=== PATIENT | male | born 1960 | race Caucasian/White ===

== ENCOUNTER 2020-06-17 22:00 | Inpatient (IN) ==
[~2020-06-17 22:00] MED LIST: HEPARIN/NACL 0.9% 2 UNITS/ML 1,000 ML IV ONE; LIDOCAINE 1% 20 ML VIAL ONE
[2020-06-17] MEDS ORDERED: MIDAZOLAM 2 MG/2 ML VIAL ONE (22:15)
[2020-06-17] MEDS ORDERED: fentaNYL 100 MCG/2 ML VIAL ONE (22:16)
[2020-06-17] MEDS ORDERED: ENOXAPARIN 60 MG/0.6 ML SYRINGE ONE (22:17)
[2020-06-17] MEDS ORDERED: HEPARIN/NACL 0.9% 2 UNITS/ML 500 ML IV ONE (22:25)
[2020-06-17] MEDS ORDERED: NITROPRUSSIDE 50 MG/2 ML VIAL ONE (22:38)
[2020-06-17] MEDS ORDERED: HEPARIN 5,000 UNIT/1 ML VIAL ONE (22:49)
[2020-06-17] MEDS ORDERED: TICAGRELOR 90 MG TABLET ONE (22:50)
[2020-06-17 23:00] LABS: ABG Base Excess -9.6 MMOL/L (-2.5-2.5); ABG HCO3 16.8 MMOL/L (20-26); ABG Oxygen Saturation 89.6 % (95-100); ABG PCO2 54.8 MM HG (35-48); ABG PO2 72.8 MM HG (80-95); ABG TCO2 17.8 MMOL/L (23-27); Glucose Heart Surgery 375 MG/DL (74-106); Hematocrit Heart Surgery 50.4 PERCENT (42-52); Hemoglobin Heart Surgery 16.5 G/DL (14.0-18.0); Ionized Calcium Arterial 1.02 MMOL/L (1.21-1.46); PCO2 Patient Temp Arterial 54.8 MMHG; PH Patient Temp Arterial 7.177; PO2 Patient Temp Arterial 72.8 MM HG; Patient Temperature 37 CELCIUS; Potassium Heart/CVR 3.5 MMOL/L (3.5-5.1); Sodium Heart/CVR 141 MMOL/L (135-145)
[2020-06-17 23:01] LABS: ABG PH 7.177 (7.35-7.45)
[2020-06-17 23:02] LABS: ABG Base Excess -8.2 MMOL/L (-2.5-2.5); ABG HCO3 17.9 MMOL/L (20-26); ABG Oxygen Saturation 96.2 % (95-100); ABG PCO2 45.8 MM HG (35-48); ABG PH 7.239 (7.35-7.45); ABG PO2 96.9 MM HG (80-95); Glucose Heart Surgery 351 MG/DL (74-106); Hematocrit Heart Surgery 47.5 PERCENT (42-52); Hemoglobin Heart Surgery 15.5 G/DL (14.0-18.0); Ionized Calcium Arterial 1.02 MMOL/L (1.21-1.46); PCO2 Patient Temp Arterial 45.8 MMHG; PH Patient Temp Arterial 7.239; PO2 Patient Temp Arterial 96.9 MM HG; Patient Temperature 37 CELCIUS; Potassium Heart/CVR 3.7 MMOL/L (3.5-5.1); Sodium Heart/CVR 141 MMOL/L (135-145)
[2020-06-17] MEDS ORDERED: ALBUTEROL 2.5 MG/3 ML NEB RESP TX PRN (23:20)
[2020-06-17] MEDS ORDERED: DEXTROSE 50% 25 GM/50 ML VIAL IV PRN (23:25)
[2020-06-17] MEDS ORDERED: GLUCAGON 1 MG VIAL IM PRN (23:25)
[2020-06-17] MEDS ORDERED: NOREPINEPHRINE 8 MG in SODIUM CHLORIDE 0.9% 242 ML IV SCH (23:30)
[2020-06-17] MEDS ORDERED: HEPARIN DRIP 25,000 UNITS/500 ML PREMIX IV SCH (23:30)
[2020-06-17] MEDS ORDERED: HEPARIN DRIP 25,000 UNITS/500 ML PREMIX IV ONE (23:32)
[2020-06-18] MEDS ORDERED: LIDOCAINE 2%/EPI 20 ML VIAL ONE (00:09)
[2020-06-18] MEDS: MIDAZOLAM 100 MG in SODIUM CHLORIDE 0.9% 80 ML IV PRN ×3 (00:43→22:28)
[2020-06-18] MEDS: MORPHINE 4 MG/1 ML VIAL IV PRN ×2 (01:08→05:49)
[2020-06-18] MEDS ORDERED: SODIUM BICARB INJ 50 MEQ in SODIUM CHLORIDE 0.45% 1,000 ML IV SCH (01:30)
[2020-06-18] MEDS: ATORVASTATIN 80 MG TABLET PO SCH ×2 (03:23→22:04)
[2020-06-18] MEDS: HEPARIN DRIP 25,000 UNITS/500 ML PREMIX IV SCH ×2 (03:24→22:17)
[2020-06-18] MEDS: ALBUTEROL 2.5 MG/3 ML NEB RESP TX SCH ×4 (03:24→19:54)
[2020-06-18] MEDS: INSULIN REGULAR 100 UNIT/ML SUBCUT SCH ×5 (03:26→21:16)
[2020-06-18 03:58] LABS: ABG Oxygen Saturation 97.7 % (95-100); ABG PCO2 33.5 MM HG (35-48); ABG PH 7.266 (7.35-7.45); ABG TCO2 13.2 MMOL/L (23-27)
[2020-06-18 03:59] LABS: Basophils # 0.1 10*3/uL (0.0-0.2); Basophils % 0.2 % (0.0-0.8); Hematocrit 47.6 VOL% (42.0-52.0); Hemoglobin 15.5 GM/DL (14.0-18.0); Immature Granulocytes Absolute 0.29 #; Lymphocytes # 2.2 10*3/uL (1.4-4.0); Lymphocytes % 7.5 % (21.2-54.2); Mean Corpuscular HGB Conc 32.6 GM/DL (32-36); Mean Corpuscular Volume 93.5 FL (87-102); Mean Platelet Volume 10.1 FL (9.6-12.0); Monocytes % 9.5 % (1.7-12.7); Neutrophils % 81.8 % (38.7-73.9); Platelet Count 317 T/CUMM (130-400); Red Blood Count 5.09 MC/CUMM (3.8-5.5); Red Cell Distribution Width 13.6 % (9.3-17.3); White Blood Count 29.7 T/CUMM (4-12)
[2020-06-18] MEDS: FAMOTIDINE 20 MG/2 ML VIAL IV SCH ×2 (04:29→13:20)
[2020-06-18] MEDS ORDERED: SODIUM CHLORIDE 0.9% 250 ML IV ONE (05:03)
[2020-06-18] MEDS ORDERED: cefTRIAXone 1,000 MG in SYRINGE 1 EACH IV ONE (05:24)
[2020-06-18] MEDS: ACETAMINOPHEN 500 MG TABLET PO PRN (05:43)
[2020-06-18] MEDS: NOREPINEPHRINE 16 MG in SODIUM CHLORIDE 0.9% 234 ML IV PRN ×2 (05:45→14:33)
[2020-06-18] MEDS: methylPREDNISolone SOD SUC 125 MG/2 ML VIAL IV SCH ×2 (06:33→18:09)
[2020-06-18] MEDS: CLINDAMYCIN INJ 600 MG in PREMIX 1 EACH IV SCH ×3 (06:33→22:05)
[2020-06-18] MEDS: SODIUM BICARB INJ 150 MEQ in STERILE WATER INJ 850 ML IV SCH ×2 (06:37→17:08)
[2020-06-18] MEDS: FUROSEMIDE INJ 200 MG in SODIUM CHLORIDE 0.9% 80 ML IV SCH (07:22)
[2020-06-18 07:46] LABS: INR 1.3
[2020-06-18 07:48] LABS: Partial Thromboplastin Time 98.2 SECS (23.9-33.8)
[2020-06-18 07:49] LABS: Blood Urea Nitrogen 29 MG/DL (7-18); Calcium 6.7 MG/DL (8.5-10.1); Carbon Dioxide 20 MMOL/L (21-32); Estimated Glom Filtration Rate 31 ML/MIN; Glucose 335 MG/DL (74-106); HDL Cholesterol 28 MG/DL (40-60); Osmolality,Calculated 291.8 MOS/KG (273-304); Potassium 5.1 MMOL/L (3.5-5.1); Risk Ratio 4.29; Sodium 137 MMOL/L (136-145); Triglycerides 159 MG/DL (2-150); VLDL CHOLESTEROL 31.8 MG/DL
[2020-06-18] MEDS: DOBUTamine 500 MG/250 ML PREMIX IV PRN (09:28)
[2020-06-18] MEDS: TICAGRELOR 90 MG TABLET PO SCH ×2 (10:26→22:05)
[2020-06-18] MEDS: ASPIRIN CHEW 81 MG TABLET PO SCH (10:26)
[2020-06-18 14:07] LABS: Calcium 6.3 MG/DL (8.5-10.1); Osmolality,Calculated 297.8 MOS/KG (273-304)
[2020-06-18] MEDS ORDERED: SODIUM CHLORIDE 0.9% 500 ML IV ONE (15:21)
[2020-06-18 16:49] LABS: INR 1.2; PT Patient Result 12.6 SECS (9.8-11.9)
[2020-06-18 16:56] LABS: Partial Thromboplastin Time 100.3 SECS (23.9-33.8)
[2020-06-18] MEDS ORDERED: INSULIN REGULAR 100 UNIT/ML IV ONE (23:51)
[2020-06-19] MEDS: FAMOTIDINE 20 MG/2 ML VIAL IV SCH ×3 (00:11→23:07)
[2020-06-19] MEDS: ALBUTEROL 2.5 MG/3 ML NEB RESP TX SCH ×4 (01:00→22:09)
[2020-06-19] MEDS ORDERED: INSULIN REGULAR 100 UNIT/ML IV ONE (01:48)
[2020-06-19] MEDS: INSULIN REGULAR 100 UNIT/ML SUBCUT SCH ×3 (01:49→10:03)
[2020-06-19 03:19] LABS: Basophils % 0.1 % (0.0-0.8); Hematocrit 35.2 VOL% (42.0-52.0); Hemoglobin 11.6 GM/DL (14.0-18.0); Immature Granulocytes % 0.6 %; Immature Granulocytes Absolute 0.14 #; Lymphocytes % 4.5 % (21.2-54.2); Mean Corpuscular Volume 92.9 FL (87-102); Mean Platelet Volume 10.7 FL (9.6-12.0); Monocytes % 4.9 % (1.7-12.7); Neutrophils % 89.9 % (38.7-73.9); Platelet Count 142 T/CUMM (130-400); Red Blood Count 3.79 MC/CUMM (3.8-5.5); Red Cell Distribution Width 13.4 % (9.3-17.3); White Blood Count 22.5 T/CUMM (4-12)
[2020-06-19 03:39] LABS: ABG Base Excess 0.1 MMOL/L (-2.5-2.5); ABG HCO3 23.1 MMOL/L (20-26); ABG Oxygen Saturation 96.4 % (95-100); ABG PCO2 32.3 MM HG (35-48); ABG PH 7.472 (7.35-7.45); ABG PO2 84.7 MM HG (80-95); ABG TCO2 24.1 MMOL/L (23-27)
[2020-06-19 03:59] LABS: Band Neutrophils 1 % (0-10); Hypochromasia 1+; Lymphocytes 5 % (20-55); Microcytosis 1+; Platelet Estimate Adequate; Segmented Neutrophils 89 % (50-85); Total Cells Counted 100
[2020-06-19 04:12] LABS: Calcium 6.6 MG/DL (8.5-10.1); Osmolality,Calculated 302.7 MOS/KG (273-304); Potassium 3.5 MMOL/L (3.5-5.1)
[2020-06-19] MEDS: FUROSEMIDE INJ 200 MG in SODIUM CHLORIDE 0.9% 80 ML IV SCH ×2 (04:32→22:06)
[2020-06-19] MEDS: HEPARIN DRIP 25,000 UNITS/500 ML PREMIX IV SCH ×2 (04:41→15:58)
[2020-06-19] MEDS: CLINDAMYCIN INJ 600 MG in PREMIX 1 EACH IV SCH ×3 (05:53→21:54)
[2020-06-19] MEDS: methylPREDNISolone SOD SUC 125 MG/2 ML VIAL IV SCH ×2 (06:01→19:04)
[2020-06-19] MEDS: cefTRIAXone 1,000 MG in SYRINGE 1 EACH IV SCH (06:34)
[2020-06-19] MEDS ORDERED: SODIUM CHLORIDE 0.9% 500 ML IV ONE ×2 (08:48→16:20)
[2020-06-19] MEDS: SODIUM BICARB INJ 150 MEQ in STERILE WATER INJ 850 ML IV SCH ×2 (09:07→15:05)
[2020-06-19] MEDS: TICAGRELOR 90 MG TABLET PO SCH ×2 (09:34→20:00)
[2020-06-19] MEDS: ASPIRIN CHEW 81 MG TABLET PO SCH (09:34)
[2020-06-19] MEDS: NOREPINEPHRINE 16 MG in SODIUM CHLORIDE 0.9% 234 ML IV PRN ×2 (09:35→22:31)
[2020-06-19] MEDS: INSULIN REGULAR DRIP 100 ML IV PRN ×2 (09:51→23:04)
[2020-06-19] MEDS ORDERED: MIDAZOLAM 2 MG/2 ML VIAL ONE ×2 (11:07→13:16)
[2020-06-19] MEDS: MIDAZOLAM 100 MG in SODIUM CHLORIDE 0.9% 80 ML IV PRN ×2 (11:19→19:06)
[2020-06-19] MEDS: DOBUTamine 500 MG/250 ML PREMIX IV PRN (11:27)
[2020-06-19] MEDS ORDERED: MIDAZOLAM 2 MG/2 ML VIAL IV STA (13:15)
[2020-06-19] MEDS ORDERED: DEXMEDETOMIDINE 200 MCG in SODIUM CHLORIDE 0.9% 48 ML IV PRN (14:19)
[2020-06-19 15:33] LABS: INR 1.1; PT Patient Result 11.8 SECS (9.8-11.9)
[2020-06-19] MEDS: DEXMEDETOMIDINE 400 MCG in SODIUM CHLORIDE 0.9% 96 ML IV PRN (17:22)
[2020-06-19] MEDS: ATORVASTATIN 80 MG TABLET PO SCH (20:00)
[2020-06-20] MEDS: ALBUTEROL 2.5 MG/3 ML NEB RESP TX SCH ×4 (00:05→19:22)
[2020-06-20] MEDS: MORPHINE 4 MG/1 ML VIAL IV PRN ×2 (02:30→21:23)
[2020-06-20] MEDS: ACETAMINOPHEN 500 MG TABLET PO PRN ×2 (03:16→22:55)
[2020-06-20 03:29] LABS: Basophils % 0.1 % (0.0-0.8); Hemoglobin 10.1 GM/DL (14.0-18.0); Immature Granulocytes Absolute 0.24 #; Lymphocytes # 0.6 10*3/uL (1.4-4.0); Lymphocytes % 2.5 % (21.2-54.2); Mean Corpuscular HGB Conc 34.8 GM/DL (32-36); Mean Corpuscular Volume 87.3 FL (87-102); Mean Platelet Volume 11.3 FL (9.6-12.0); Neutrophils % 92.4 % (38.7-73.9); Platelet Count 132 T/CUMM (130-400); Red Blood Count 3.32 MC/CUMM (3.8-5.5); Red Cell Distribution Width 13.7 % (9.3-17.3); White Blood Count 24.4 T/CUMM (4-12)
[2020-06-20 03:40] LABS: ABG Base Excess 1.2 MMOL/L (-2.5-2.5); ABG HCO3 24.1 MMOL/L (20-26); ABG Oxygen Saturation 98.6 % (95-100); ABG PCO2 32.1 MM HG (35-48); ABG PH 7.494 (7.35-7.45); ABG PO2 268.6 MM HG (80-95); ABG TCO2 25.1 MMOL/L (23-27)
[2020-06-20 03:57] LABS: Calcium 6.4 MG/DL (8.5-10.1); Hypochromasia 1+; Lymphocytes 1 % (20-55); Osmolality,Calculated 297.7 MOS/KG (273-304); Platelet Estimate Normal; Potassium 3.1 MMOL/L (3.5-5.1); Segmented Neutrophils 97 % (50-85); Total Cells Counted 100
[2020-06-20 03:58] LABS: Microcytosis 1+
[2020-06-20] MEDS: DEXMEDETOMIDINE 400 MCG in SODIUM CHLORIDE 0.9% 96 ML IV PRN (05:11)
[2020-06-20] MEDS: methylPREDNISolone SOD SUC 125 MG/2 ML VIAL IV SCH ×2 (05:26→18:03)
[2020-06-20] MEDS: cefTRIAXone 1,000 MG in SYRINGE 1 EACH IV SCH (05:26)
[2020-06-20] MEDS: CLINDAMYCIN INJ 600 MG in PREMIX 1 EACH IV SCH ×3 (05:30→21:30)
[2020-06-20] MEDS: NOREPINEPHRINE 16 MG in SODIUM CHLORIDE 0.9% 234 ML IV PRN ×2 (08:30→18:43)
[2020-06-20] MEDS: ASPIRIN CHEW 81 MG TABLET PO SCH (08:50)
[2020-06-20] MEDS: TICAGRELOR 90 MG TABLET PO SCH ×2 (08:51→20:03)
[2020-06-20] MEDS: DOBUTamine 500 MG/250 ML PREMIX IV PRN (08:54)
[2020-06-20] MEDS: MIDAZOLAM 100 MG in SODIUM CHLORIDE 0.9% 80 ML IV PRN ×2 (09:16→20:03)
[2020-06-20] MEDS: HEPARIN DRIP 25,000 UNITS/500 ML PREMIX IV SCH (09:28)
[2020-06-20] MEDS: SODIUM BICARB INJ 150 MEQ in STERILE WATER INJ 850 ML IV SCH ×2 (09:57→12:25)
[2020-06-20 10:09] LABS: Calcium 6.6 MG/DL (8.5-10.1); Osmolality,Calculated 297.8 MOS/KG (273-304); Potassium 3.1 MMOL/L (3.5-5.1)
[2020-06-20] MEDS ORDERED: HEPARIN LOCK FLUSH 500 UNIT/5 ML SYRINGE IV ONE (10:49)
[2020-06-20] MEDS: FAMOTIDINE 20 MG/2 ML VIAL IV SCH ×2 (12:26→22:47)
[2020-06-20] MEDS: INSULIN REGULAR DRIP 100 ML IV PRN (14:23)
[2020-06-20] MEDS: ATORVASTATIN 80 MG TABLET PO SCH (20:03)
[2020-06-20 21:41] LABS: Calcium 6.2 MG/DL (8.5-10.1); Osmolality,Calculated 306.3 MOS/KG (273-304); Potassium 3.1 MMOL/L (3.5-5.1)
[2020-06-21] MEDS: ALBUTEROL 2.5 MG/3 ML NEB RESP TX SCH ×4 (00:05→19:00)
[2020-06-21 00:24] LABS: Basophils % 0.1 % (0.0-0.8); Immature Granulocytes % 1.3 %; Immature Granulocytes Absolute 0.27 #; Lymphocytes # 0.7 10*3/uL (1.4-4.0); Lymphocytes % 3.2 % (21.2-54.2); Mean Corpuscular HGB Conc 34.2 GM/DL (32-36); Mean Corpuscular Volume 88.9 FL (87-102); Mean Platelet Volume 11.8 FL (9.6-12.0); Monocytes % 6.9 % (1.7-12.7); NRBC # 0.03 10*3/uL; Neutrophils % 88.5 % (38.7-73.9); Platelet Count 110 T/CUMM (130-400); Red Blood Count 2.53 MC/CUMM (3.8-5.5); Red Cell Distribution Width 13.9 % (9.3-17.3)
[2020-06-21 00:25] LABS: Hematocrit 22.5 VOL% (42.0-52.0); Hemoglobin 7.7 GM/DL (14.0-18.0)
[2020-06-21 00:40] LABS: ABG HCO3 24.5 MMOL/L (20-26); ABG Oxygen Saturation 98.7 % (95-100); ABG PCO2 25.6 MM HG (35-48); ABG PH 7.598 (7.35-7.45); ABG PO2 225.5 MM HG (80-95); ABG TCO2 25.2 MMOL/L (23-27)
[2020-06-21 00:41] LABS: Calcium 6.1 MG/DL (8.5-10.1); Osmolality,Calculated 300.8 MOS/KG (273-304); Potassium 3.3 MMOL/L (3.5-5.1)
[2020-06-21] MEDS ORDERED: SODIUM CHLORIDE 0.9% 1,000 ML IV ONE (00:52)
[2020-06-21] MEDS ORDERED: HEPARIN IV PRN (01:40)
[2020-06-21] MEDS ORDERED: DEXTROSE 5% IV PRN (01:40)
[2020-06-21] MEDS: INSULIN REGULAR DRIP 100 ML IV PRN ×2 (04:01→23:41)
[2020-06-21 04:49] LABS: Basophils % 0.1 % (0.0-0.8); Hematocrit 27.5 VOL% (42.0-52.0); Immature Granulocytes % 1.2 %; Immature Granulocytes Absolute 0.24 #; Lymphocytes # 0.6 10*3/uL (1.4-4.0); Lymphocytes % 2.7 % (21.2-54.2); Mean Corpuscular HGB Conc 34.9 GM/DL (32-36); Mean Platelet Volume 11.9 FL (9.6-12.0); NRBC # 0.07 10*3/uL; Platelet Count 105 T/CUMM (130-400); Red Blood Count 3.16 MC/CUMM (3.8-5.5); Red Cell Distribution Width 13.6 % (9.3-17.3); White Blood Count 20.1 T/CUMM (4-12)
[2020-06-21 05:07] LABS: Hemoglobin 9.6 GM/DL (14.0-18.0)
[2020-06-21] MEDS: NOREPINEPHRINE 16 MG in SODIUM CHLORIDE 0.9% 234 ML IV PRN ×2 (05:07→15:46)
[2020-06-21 05:20] LABS: Albumin 1.8 G/DL (3.4-5.0); Bilirubin,Direct 0.31 MG/DL (0.0-0.20); Bilirubin,Indirect 0.7 MG/DL (0.0-1.0); Calcium 6.2 MG/DL (8.5-10.1); Osmolality,Calculated 304.7 MOS/KG (273-304); Potassium 3.4 MMOL/L (3.5-5.1); Total Protein 4.4 G/DL (6.4-8.3)
[2020-06-21 05:24] LABS: Band Neutrophils 5 % (0-10); Lymphocytes 4 % (20-55); Platelet Estimate Decreased; Segmented Neutrophils 87 % (50-85); Total Cells Counted 100
[2020-06-21 05:24] LABS: ABG Base Excess 0.4 MMOL/L (-2.5-2.5); ABG HCO3 24.8 MMOL/L (20-26); ABG Oxygen Saturation 96.8 % (95-100); ABG PCO2 35.7 MM HG (35-48); ABG PO2 83.1 MM HG (80-95)
[2020-06-21] MEDS: DEXMEDETOMIDINE 400 MCG in SODIUM CHLORIDE 0.9% 96 ML IV PRN (05:31)
[2020-06-21 05:41] LABS: PT Patient Result 11.1 SECS (9.8-11.9)
[2020-06-21 05:53] LABS: Hepatitis B Core IgM Quant 0.31 Index; Hepatitis B Surface Ag Quant < 0.10 Index; Hepatitis B Surface Ag Result Non-Reactive (NonReactive); Hepatitis C Virus Ab Quant 0.04 Index; Hepatitis C Virus Ab Result Non-Reactive (NonReactive)
[2020-06-21] MEDS: cefTRIAXone 1,000 MG in SYRINGE 1 EACH IV SCH (06:06)
[2020-06-21] MEDS: methylPREDNISolone SOD SUC 125 MG/2 ML VIAL IV SCH (06:06)
[2020-06-21] MEDS: CLINDAMYCIN INJ 600 MG in PREMIX 1 EACH IV SCH ×3 (06:07→21:32)
[2020-06-21 06:13] LABS: Bacteria,Urine Few /HPF (Few); Bilirubin,Urine Negative (Negative); Blood, Urine Large mg/dL (Negative); Glucose,Urine (UA) Negative (Negative); Ketones,Urine Negative (Negative); Nitrite,Urine Negative (Negative); Protein,Urine 30 MG/DL; RBC,Urine 16 /HPF (0-4); Urine Appearance CLOUDY (Clear); Urine Color Yellow (Yellow); Urine Specific Gravity 1.016 (1.001-1.035); Urine Urobilinogen < 2.0 EU/DL (0.2-1.0); WBC,Urine 20 /HPF (0-6)
[2020-06-21] MEDS: SODIUM BICARB INJ 150 MEQ in STERILE WATER INJ 850 ML IV SCH (06:18)
[2020-06-21] MEDS: MIDAZOLAM 100 MG in SODIUM CHLORIDE 0.9% 80 ML IV PRN ×2 (06:19→17:54)
[2020-06-21 08:51] LABS: Lymphocytes 3 % (20-55); Metamyelocytes 1 %; Platelet Estimate Decreased; Segmented Neutrophils 89 % (50-85); Total Cells Counted 100
[2020-06-21 09:27] LABS: Hematocrit 29.9 VOL% (42.0-52.0)
[2020-06-21 09:34] LABS: Calcium 6.1 MG/DL (8.5-10.1); Osmolality,Calculated 303.7 MOS/KG (273-304); Potassium 3.4 MMOL/L (3.5-5.1)
[2020-06-21] MEDS ORDERED: HEPARIN 5,000 UNIT/1 ML VIAL IV ONE (09:57)
[2020-06-21] MEDS ORDERED: HEPARIN 5,000 UNIT/1 ML VIAL SUBCUT SCH (10:00)
[2020-06-21] MEDS: DOBUTamine 500 MG/250 ML PREMIX IV PRN (10:06)
[2020-06-21] MEDS: HEPARIN DRIP 25,000 UNITS/500 ML PREMIX IV SCH ×2 (10:07→10:25)
[2020-06-21] MEDS: ASPIRIN CHEW 81 MG TABLET PO SCH (10:25)
[2020-06-21] MEDS: TICAGRELOR 90 MG TABLET PO SCH ×2 (10:25→21:27)
[2020-06-21] MEDS: INSULIN GLARGINE 100 UNIT/ML SUBCUT SCH ×2 (12:40→23:49)
[2020-06-21] MEDS: FAMOTIDINE 20 MG/2 ML VIAL IV SCH ×2 (12:40→22:56)
[2020-06-21] MEDS: methylPREDNISolone SOD SUC 40 MG/1 ML VIAL IV SCH (17:43)
[2020-06-21] MEDS: MORPHINE 4 MG/1 ML VIAL IV PRN ×2 (17:44→22:59)
[2020-06-21] MEDS: ATORVASTATIN 80 MG TABLET PO SCH (21:27)
[2020-06-21 22:19] LABS: Osmolality,Calculated 307.4 MOS/KG (273-304); Potassium 3.3 MMOL/L (3.5-5.1)
[2020-06-22] MEDS: ALBUTEROL 2.5 MG/3 ML NEB RESP TX SCH ×4 (00:23→19:12)
[2020-06-22] MEDS: MIDAZOLAM 100 MG in SODIUM CHLORIDE 0.9% 80 ML IV PRN ×2 (04:52→15:39)
[2020-06-22 04:54] LABS: ABG Base Excess 0.2 MMOL/L (-2.5-2.5); ABG HCO3 24.6 MMOL/L (20-26); ABG Oxygen Saturation 97.9 % (95-100); ABG PH 7.453 (7.35-7.45); ABG PO2 98.6 MM HG (80-95)
[2020-06-22 05:22] LABS: Basophils # 0.1 10*3/uL (0.0-0.2); Basophils % 0.3 % (0.0-0.8); Hematocrit 25.4 VOL% (42.0-52.0); Hemoglobin 8.7 GM/DL (14.0-18.0); Immature Granulocytes % 2.3 %; Immature Granulocytes Absolute 0.47 #; Lymphocytes # 0.7 10*3/uL (1.4-4.0); Lymphocytes % 3.6 % (21.2-54.2); Mean Corpuscular HGB Conc 34.3 GM/DL (32-36); Mean Corpuscular Volume 87.9 FL (87-102); Mean Platelet Volume 12.1 FL (9.6-12.0); NRBC # 0.08 10*3/uL; Neutrophils % 84.8 % (38.7-73.9); Platelet Count 52 T/CUMM (130-400); Red Blood Count 2.89 MC/CUMM (3.8-5.5); White Blood Count 20.8 T/CUMM (4-12)
[2020-06-22 05:27] LABS: Calcium 6.2 MG/DL (8.5-10.1); Osmolality,Calculated 302.8 MOS/KG (273-304); Potassium 3.2 MMOL/L (3.5-5.1)
[2020-06-22] MEDS: methylPREDNISolone SOD SUC 40 MG/1 ML VIAL IV SCH ×2 (05:30→17:40)
[2020-06-22] MEDS: cefTRIAXone 1,000 MG in SYRINGE 1 EACH IV SCH (05:32)
[2020-06-22] MEDS: CLINDAMYCIN INJ 600 MG in PREMIX 1 EACH IV SCH (05:39)
[2020-06-22 08:36] LABS: Hypochromasia 2+; Lymphocytes 2 % (20-55); Platelet Estimate Decreased; Polychromasia Slight; Segmented Neutrophils 89 % (50-85); Total Cells Counted 100
[2020-06-22] MEDS: TICAGRELOR 90 MG TABLET PO SCH ×2 (09:01→21:29)
[2020-06-22] MEDS: ASPIRIN CHEW 81 MG TABLET PO SCH (09:01)
[2020-06-22 09:03] LABS: Calcium 6.1 MG/DL (8.5-10.1); Osmolality,Calculated 306.7 MOS/KG (273-304); Potassium 3.4 MMOL/L (3.5-5.1)
[2020-06-22] MEDS: MORPHINE 4 MG/1 ML VIAL IV PRN ×3 (09:04→21:29)
[2020-06-22 09:48] LABS: Basophils % 0.2 % (0.0-0.8); Hematocrit 24.6 VOL% (42.0-52.0); Hemoglobin 8.3 GM/DL (14.0-18.0); Immature Granulocytes % 2.1 %; Immature Granulocytes Absolute 0.54 #; Lymphocytes # 0.8 10*3/uL (1.4-4.0); Lymphocytes % 3.1 % (21.2-54.2); Mean Corpuscular HGB Conc 33.7 GM/DL (32-36); Mean Corpuscular Volume 90.1 FL (87-102); Mean Platelet Volume 12.5 FL (9.6-12.0); Monocytes % 12.5 % (1.7-12.7); NRBC # 0.17 10*3/uL; Neutrophils % 82.1 % (38.7-73.9); Platelet Count 61 T/CUMM (130-400); Red Blood Count 2.73 MC/CUMM (3.8-5.5); White Blood Count 25.2 T/CUMM (4-12)
[2020-06-22] MEDS ORDERED: GLUCAGON 1 MG VIAL IM PRN (10:07)
[2020-06-22] MEDS ORDERED: DEXTROSE 50% 25 GM/50 ML VIAL IV PRN (10:07)
[2020-06-22] MEDS: DOBUTamine 500 MG/250 ML PREMIX IV PRN (10:43)
[2020-06-22] MEDS: HEPARIN DRIP 25,000 UNITS/500 ML PREMIX IV SCH (10:44)
[2020-06-22] MEDS: NOREPINEPHRINE 16 MG in SODIUM CHLORIDE 0.9% 234 ML IV PRN (12:16)
[2020-06-22] MEDS: FAMOTIDINE 20 MG/2 ML VIAL IV SCH (12:25)
[2020-06-22] MEDS: INSULIN LISPRO 100 UNIT/ML SUBCUT SCH ×2 (12:25→17:39)
[2020-06-22] MEDS: INSULIN GLARGINE 100 UNIT/ML SUBCUT SCH (12:26)
[2020-06-22 12:51] LABS: Band Neutrophils 3 % (0-10); Hypochromasia 1+; Lymphocytes 3 % (20-55); Platelet Estimate Decreased; Polychromasia Slight; Segmented Neutrophils 87 % (50-85); Total Cells Counted 100
[2020-06-22] MEDS ORDERED: MEROPENEM 500 MG in SODIUM CHLORIDE 0.9% 100 ML IV SCH (13:00)
[2020-06-22 13:30] LABS: Hematocrit 29.5 VOL% (42.0-52.0)
[2020-06-22 13:31] LABS: Hemoglobin 9.9 GM/DL (14.0-18.0)
[2020-06-22] MEDS ORDERED: VANCOMYCIN INJ 2,500 MG in SODIUM CHLORIDE 0.9% 500 ML IV ONE (15:00)
[2020-06-22 16:00] LABS: Bilirubin,Total 0.9 MG/DL (0.2-1.0); Osmolality,Calculated 317.7 MOS/KG (273-304); Potassium 3.7 MMOL/L (3.5-5.1); Total Protein 4.6 G/DL (6.4-8.3)
[2020-06-22 16:02] LABS: Calcium 5.8 MG/DL (8.5-10.1)
[2020-06-22] MEDS ORDERED: CALCIUM CHLORIDE 1,000 MG/10 ML SYRINGE IV ONE ×2 (18:16→18:19)
[2020-06-22] MEDS: ATORVASTATIN 80 MG TABLET PO SCH (21:29)
[2020-06-22 23:04] LABS: Calcium 6.1 MG/DL (8.5-10.1); Osmolality,Calculated 318.8 MOS/KG (273-304); Potassium 3.7 MMOL/L (3.5-5.1)
[2020-06-23] MEDS: ALBUTEROL 2.5 MG/3 ML NEB RESP TX SCH ×4 (00:02→19:18)
[2020-06-23] MEDS: FAMOTIDINE 20 MG/2 ML VIAL IV SCH ×3 (00:06→22:58)
[2020-06-23] MEDS: INSULIN LISPRO 100 UNIT/ML SUBCUT SCH ×6 (00:08→22:33)
[2020-06-23] MEDS: INSULIN GLARGINE 100 UNIT/ML SUBCUT SCH (00:09)
[2020-06-23] MEDS: MIDAZOLAM 100 MG in SODIUM CHLORIDE 0.9% 80 ML IV PRN ×3 (01:15→19:45)
[2020-06-23] MEDS: MORPHINE 4 MG/1 ML VIAL IV PRN ×4 (01:40→17:57)
[2020-06-23 05:56] LABS: ABG HCO3 21.9 MMOL/L (20-26); ABG Oxygen Saturation 97.9 % (95-100); ABG PH 7.402 (7.35-7.45); ABG TCO2 19.4 MMOL/L (23-27)
[2020-06-23 05:57] LABS: Basophils # 0.1 10*3/uL (0.0-0.2); Basophils % 0.3 % (0.0-0.8); Hematocrit 25.8 VOL% (42.0-52.0); Hemoglobin 9.1 GM/DL (14.0-18.0); Immature Granulocytes % 4.1 %; Immature Granulocytes Absolute 0.99 #; Lymphocytes # 0.5 10*3/uL (1.4-4.0); Lymphocytes % 2.2 % (21.2-54.2); Mean Corpuscular HGB Conc 35.3 GM/DL (32-36); Mean Corpuscular Volume 86.3 FL (87-102); Mean Platelet Volume 12.4 FL (9.6-12.0); Monocytes % 8.7 % (1.7-12.7); NRBC # 0.12 10*3/uL; Neutrophils % 84.7 % (38.7-73.9); Platelet Count 53 T/CUMM (130-400); Red Blood Count 2.99 MC/CUMM (3.8-5.5); Red Cell Distribution Width 14.2 % (9.3-17.3); White Blood Count 24.3 T/CUMM (4-12)
[2020-06-23 06:05] LABS: Osmolality,Calculated 316.1 MOS/KG (273-304); Potassium 3.8 MMOL/L (3.5-5.1)
[2020-06-23 06:21] LABS: Hypochromasia 1+; Lymphocytes 4 % (20-55); Microcytosis 1+; Platelet Estimate Decreased; Segmented Neutrophils 90 % (50-85); Total Cells Counted 100
[2020-06-23] MEDS: methylPREDNISolone SOD SUC 40 MG/1 ML VIAL IV SCH ×2 (06:22→18:05)
[2020-06-23] MEDS: ASPIRIN CHEW 81 MG TABLET PO SCH (08:25)
[2020-06-23] MEDS: TICAGRELOR 90 MG TABLET PO SCH ×2 (08:25→22:33)
[2020-06-23] MEDS ORDERED: INSULIN GLARGINE 100 UNIT/ML SUBCUT SCH (09:00)
[2020-06-23] MEDS ORDERED: SUCCINYLCHOLINE 200 MG/10 ML VIAL IV ONE (10:49)
[2020-06-23] MEDS ORDERED: propofoL 200 MG/20 ML VIAL IV ONE (10:49)
[2020-06-23] MEDS ORDERED: HEPARIN 5,000 UNIT/1 ML VIAL IV ONE (12:33)
[2020-06-23] MEDS: MEROPENEM 500 MG in SODIUM CHLORIDE 0.9% 100 ML IV SCH (12:36)
[2020-06-23] MEDS: DOBUTamine 500 MG/250 ML PREMIX IV PRN (14:04)
[2020-06-23 15:00] LABS: Hematocrit 25.5 VOL% (42.0-52.0); Hemoglobin 8.5 GM/DL (14.0-18.0)
[2020-06-23] MEDS ORDERED: SODIUM CHLORIDE 0.9% 500 ML IV ONE (16:31)
[2020-06-23] MEDS ORDERED: VANCOMYCIN INJ 1,000 MG in SODIUM CHLORIDE 0.9% 250 ML IV PRN (17:00)
[2020-06-23 17:04] LABS: Hematocrit 25.7 VOL% (42.0-52.0); Hemoglobin 8.6 GM/DL (14.0-18.0)
[2020-06-23] MEDS ORDERED: HEPARIN/NACL 0.9% 2 UNITS/ML 500 ML IV ONE (17:38)
[2020-06-23] MEDS: NOREPINEPHRINE 16 MG in SODIUM CHLORIDE 0.9% 234 ML IV PRN (17:56)
[2020-06-23 20:51] LABS: Hematocrit 25.4 VOL% (42.0-52.0); Hemoglobin 8.8 GM/DL (14.0-18.0)
[2020-06-23] MEDS: ATORVASTATIN 80 MG TABLET PO SCH (22:33)
[2020-06-24] MEDS: INSULIN LISPRO 100 UNIT/ML SUBCUT SCH ×6 (01:53→21:51)
[2020-06-24 04:31] LABS: ABG Base Excess -3.9 MMOL/L (-2.5-2.5); ABG HCO3 21.1 MMOL/L (20-26); ABG Oxygen Saturation 98.1 % (95-100); ABG PCO2 31.8 MM HG (35-48); ABG PH 7.408 (7.35-7.45); ABG TCO2 18.7 MMOL/L (23-27)
[2020-06-24 04:35] LABS: Basophils # 0.1 10*3/uL (0.0-0.2); Basophils % 0.3 % (0.0-0.8); Hematocrit 23.9 VOL% (42.0-52.0); Hemoglobin 8.1 GM/DL (14.0-18.0); Immature Granulocytes % 8.2 %; Immature Granulocytes Absolute 2.24 #; Lymphocytes # 0.8 10*3/uL (1.4-4.0); Lymphocytes % 2.8 % (21.2-54.2); Mean Corpuscular HGB Conc 33.9 GM/DL (32-36); Mean Corpuscular Volume 88.5 FL (87-102); Monocytes % 9.7 % (1.7-12.7); NRBC # 0.14 10*3/uL; Platelet Count 70 T/CUMM (130-400); Red Cell Distribution Width 15.3 % (9.3-17.3); White Blood Count 27.2 T/CUMM (4-12)
[2020-06-24 04:57] LABS: Band Neutrophils 2 % (0-10); Hypochromasia 1+; Lymphocytes 4 % (20-55); Microcytosis 1+; Platelet Estimate Decreased; Segmented Neutrophils 83 % (50-85); Total Cells Counted 100
[2020-06-24 04:58] LABS: Albumin 1.8 G/DL (3.4-5.0); Bilirubin,Total 0.8 MG/DL (0.2-1.0); Osmolality,Calculated 323.7 MOS/KG (273-304); Potassium 4.5 MMOL/L (3.5-5.1); Total Protein 4.3 G/DL (6.4-8.3)
[2020-06-24 05:04] LABS: Calcium 5.8 MG/DL (8.5-10.1)
[2020-06-24] MEDS: MIDAZOLAM 100 MG in SODIUM CHLORIDE 0.9% 80 ML IV PRN ×2 (05:45→16:51)
[2020-06-24] MEDS: methylPREDNISolone SOD SUC 40 MG/1 ML VIAL IV SCH ×2 (05:59→17:57)
[2020-06-24] MEDS ORDERED: CALCIUM GLUCONATE 1,000 MG in SODIUM CHLORIDE 0.9% 100 ML IV ONE ×2 (06:20→16:30)
[2020-06-24] MEDS: ALBUTEROL 2.5 MG/3 ML NEB RESP TX SCH ×4 (07:43→19:40)
[2020-06-24] MEDS: TICAGRELOR 90 MG TABLET PO SCH ×3 (07:59→21:51)
[2020-06-24] MEDS: ASPIRIN CHEW 81 MG TABLET PO SCH ×2 (08:00→08:36)
[2020-06-24] MEDS: INSULIN GLARGINE 100 UNIT/ML SUBCUT SCH (08:00)
[2020-06-24] MEDS ORDERED: INFLUENZA VIRUS VACCINE 0.5 ML SYRINGE IM ONE (09:00)
[2020-06-24] MEDS: FAMOTIDINE 20 MG/2 ML VIAL IV SCH (12:36)
[2020-06-24] MEDS: MEROPENEM 500 MG in SODIUM CHLORIDE 0.9% 100 ML IV SCH (12:37)
[2020-06-24 20:46] LABS: HIT Interpretation Negative (Negative)
[2020-06-24] MEDS: ATORVASTATIN 80 MG TABLET PO SCH (21:51)
[2020-06-24] MEDS: MORPHINE 4 MG/1 ML VIAL IV PRN (22:58)
[2020-06-25] MEDS: ALBUTEROL 2.5 MG/3 ML NEB RESP TX SCH ×4 (03:40→19:17)
[2020-06-25] MEDS: MIDAZOLAM 100 MG in SODIUM CHLORIDE 0.9% 80 ML IV PRN (04:20)
[2020-06-25 04:34] LABS: ABG Base Excess -6.4 MMOL/L (-2.5-2.5); ABG HCO3 17.6 MMOL/L (20-26); ABG Oxygen Saturation 97.8 % (95-100); ABG PCO2 29.5 MM HG (35-48); ABG PH 7.394 (7.35-7.45); ABG PO2 137.8 MM HG (80-95); ABG TCO2 18.5 MMOL/L (23-27)
[2020-06-25 04:40] LABS: Basophils # 0.1 10*3/uL (0.0-0.2); Basophils % 0.3 % (0.0-0.8); Hematocrit 24.8 VOL% (42.0-52.0); Hemoglobin 8.2 GM/DL (14.0-18.0); Immature Granulocytes % 13.1 %; Immature Granulocytes Absolute 4.12 #; Lymphocytes # 0.9 10*3/uL (1.4-4.0); Lymphocytes % 2.8 % (21.2-54.2); Mean Corpuscular HGB Conc 33.1 GM/DL (32-36); Mean Corpuscular Volume 89.5 FL (87-102); Mean Platelet Volume 11.2 FL (9.6-12.0); Monocytes % 6.4 % (1.7-12.7); NRBC # 0.14 10*3/uL; Neutrophils % 77.4 % (38.7-73.9); Platelet Count 110 T/CUMM (130-400); Red Blood Count 2.77 MC/CUMM (3.8-5.5); Red Cell Distribution Width 15.6 % (9.3-17.3); White Blood Count 31.5 T/CUMM (4-12)
[2020-06-25] MEDS: INSULIN LISPRO 100 UNIT/ML SUBCUT SCH ×6 (04:45→21:03)
[2020-06-25 05:26] LABS: Albumin 1.9 G/DL (3.4-5.0); Bilirubin,Total 0.8 MG/DL (0.2-1.0); Calcium 6.1 MG/DL (8.5-10.1); Potassium 5.5 MMOL/L (3.5-5.1); Total Protein 4.9 G/DL (6.4-8.3)
[2020-06-25 05:50] LABS: Band Neutrophils 3 % (0-10); Hypochromasia 2+; Lymphocytes 3 % (20-55); Platelet Estimate Decreased; Total Cells Counted 100
[2020-06-25 05:51] LABS: Metamyelocytes 5 %; Myelocytes 1 %; Ovalocytes 1+; Polychromasia 2+; Segmented Neutrophils 83 % (50-85)
[2020-06-25] MEDS: methylPREDNISolone SOD SUC 40 MG/1 ML VIAL IV SCH ×2 (06:17→19:27)
[2020-06-25] MEDS ORDERED: DEXTROSE 50% 25 GM/50 ML VIAL IV PRN (08:02)
[2020-06-25] MEDS ORDERED: CALCIUM GLUCONATE 2,000 MG in SODIUM CHLORIDE 0.9% 100 ML IV ONE (09:00)
[2020-06-25] MEDS: ASPIRIN CHEW 81 MG TABLET PO SCH (09:20)
[2020-06-25] MEDS: INSULIN GLARGINE 100 UNIT/ML SUBCUT SCH (09:22)
[2020-06-25] MEDS: TICAGRELOR 90 MG TABLET PO SCH ×2 (09:22→21:03)
[2020-06-25] MEDS: FAMOTIDINE 20 MG/2 ML VIAL IV SCH (09:23)
[2020-06-25] MEDS: METOPROLOL TARTRATE 25 MG TABLET PO SCH ×2 (10:54→21:04)
[2020-06-25] MEDS ORDERED: HEPARIN 10,000 UNIT/10 ML VIAL IV PRN (12:33)
[2020-06-25] MEDS: MEROPENEM 500 MG in SODIUM CHLORIDE 0.9% 100 ML IV SCH ×2 (14:43→21:03)
[2020-06-25] MEDS: ATORVASTATIN 80 MG TABLET PO SCH (21:04)
[2020-06-25] MEDS ORDERED: NOREPINEPHRINE 4 MG/4 ML VIAL IV ONE (22:58)
[2020-06-25] MEDS: NOREPINEPHRINE 8 MG in SODIUM CHLORIDE 0.9% 242 ML IV PRN (23:04)
[2020-06-25] MEDS ORDERED: HEPARIN/NACL 0.9% 2 UNITS/ML 500 ML IV ONE (23:21)
[2020-06-25 23:54] LABS: ABG Base Excess -4.1 MMOL/L (-2.5-2.5); ABG PH 7.442 (7.35-7.45); ABG TCO2 17.6 MMOL/L (23-27)
[2020-06-26] MEDS: ACETAMINOPHEN 500 MG TABLET PO PRN ×3 (00:30→14:00)
[2020-06-26] MEDS ORDERED: SODIUM CHLORIDE 0.9% 500 ML IV ONE (00:30)
[2020-06-26] MEDS: INSULIN LISPRO 100 UNIT/ML SUBCUT SCH ×6 (00:30→20:19)
[2020-06-26] MEDS: ALBUTEROL 2.5 MG/3 ML NEB RESP TX SCH ×4 (01:13→19:06)
[2020-06-26 03:55] LABS: ABG HCO3 20.3 MMOL/L (20-26); ABG Oxygen Saturation 99.6 % (95-100); ABG PCO2 28.8 MM HG (35-48); ABG PH 7.417 (7.35-7.45); ABG TCO2 16.9 MMOL/L (23-27)
[2020-06-26 04:02] LABS: Hematocrit 26.2 VOL% (42.0-52.0); Hemoglobin 8.6 GM/DL (14.0-18.0); Immature Granulocytes % 13.8 %; Immature Granulocytes Absolute 5.64 #; Lymphocytes # 0.9 10*3/uL (1.4-4.0); Lymphocytes % 2.1 % (21.2-54.2); Mean Corpuscular HGB Conc 32.8 GM/DL (32-36); Mean Corpuscular Volume 89.4 FL (87-102); Mean Platelet Volume 11.4 FL (9.6-12.0); Monocytes % 10.7 % (1.7-12.7); NRBC # 0.48 10*3/uL; Neutrophils % 73.4 % (38.7-73.9); Platelet Count 195 T/CUMM (130-400); Red Blood Count 2.93 MC/CUMM (3.8-5.5); Red Cell Distribution Width 15.6 % (9.3-17.3)
[2020-06-26 04:27] LABS: Band Neutrophils 3 % (0-10); Lymphocytes 4 % (20-55); Nucleated Red Blood Cells 3 (0-5); Segmented Neutrophils 79 % (50-85); Total Cells Counted 100
[2020-06-26 04:28] LABS: Hypochromasia 1+; Microcytosis 1+; Platelet Estimate Adequate
[2020-06-26 04:29] LABS: Polychromasia Slight
[2020-06-26 05:10] LABS: Bilirubin,Total 0.9 MG/DL (0.2-1.0); Calcium 6.4 MG/DL (8.5-10.1); Osmolality,Calculated 326.2 MOS/KG (273-304); Total Protein 5.4 G/DL (6.4-8.3)
[2020-06-26 05:22] LABS: Potassium 6.5 MMOL/L (3.5-5.1)
[2020-06-26] MEDS ORDERED: SODIUM POLYSTYRENE SULFATE 15 GM/60 ML BOTTLE PO ONE (05:32)
[2020-06-26] MEDS: methylPREDNISolone SOD SUC 40 MG/1 ML VIAL IV SCH ×2 (05:46→17:59)
[2020-06-26] MEDS: ENOXAPARIN 30 MG/0.3 ML SYRINGE SUBCUT SCH (08:43)
[2020-06-26] MEDS: FAMOTIDINE 20 MG/2 ML VIAL IV SCH (08:43)
[2020-06-26] MEDS: INSULIN GLARGINE 100 UNIT/ML SUBCUT SCH ×2 (08:43→12:36)
[2020-06-26] MEDS: ASPIRIN CHEW 81 MG TABLET PO SCH (08:43)
[2020-06-26] MEDS: TICAGRELOR 90 MG TABLET PO SCH ×2 (08:43→20:19)
[2020-06-26] MEDS: MIDAZOLAM 100 MG in SODIUM CHLORIDE 0.9% 80 ML IV PRN (08:45)
[2020-06-26] MEDS ORDERED: CALCIUM GLUCONATE 2,000 MG in SODIUM CHLORIDE 0.9% 100 ML IV ONE (10:00)
[2020-06-26] MEDS: METOPROLOL TARTRATE 25 MG TABLET PO SCH ×2 (10:00→20:18)
[2020-06-26] MEDS: LEVOFLOXACIN INJ 750 MG in PREMIX 1 EACH IV SCH (14:30)
[2020-06-26] MEDS ORDERED: AMIODARONE 150 MG/3 ML VIAL ONE (16:44)
[2020-06-26] MEDS ORDERED: AMIODARONE INJ 150 MG in DEXTROSE 5% 100 ML IV ONE (16:44)
[2020-06-26] MEDS: METOPROLOL TARTRATE 5 MG/5 ML VIAL IV SCH ×2 (16:52→17:20)
[2020-06-26] MEDS ORDERED: AMIODARONE INJ 450 MG in DEXTROSE 5% 241 ML IV SCH ×2 (17:00→23:00)
[2020-06-26] MEDS: MEROPENEM 500 MG in SODIUM CHLORIDE 0.9% 100 ML IV SCH (20:18)
[2020-06-26] MEDS: ATORVASTATIN 80 MG TABLET PO SCH (20:18)
[2020-06-27] MEDS: INSULIN LISPRO 100 UNIT/ML SUBCUT SCH ×6 (00:31→22:13)
[2020-06-27] MEDS: MIDAZOLAM 100 MG in SODIUM CHLORIDE 0.9% 80 ML IV PRN ×2 (00:31→18:09)
[2020-06-27] MEDS: ALBUTEROL 2.5 MG/3 ML NEB RESP TX SCH ×4 (01:24→19:34)
[2020-06-27 04:10] LABS: ABG Base Excess -4.4 MMOL/L (-2.5-2.5); ABG Oxygen Saturation 98.3 % (95-100); ABG PCO2 28.2 MM HG (35-48); ABG PH 7.447 (7.35-7.45); ABG PO2 206.2 MM HG (80-95); ABG TCO2 19.9 MMOL/L (23-27)
[2020-06-27 04:20] LABS: Basophils # 0.1 10*3/uL (0.0-0.2); Basophils % 0.2 % (0.0-0.8); Eosinophils % 0.1 % (0.00-10.9); Hematocrit 22.6 VOL% (42.0-52.0); Hemoglobin 7.7 GM/DL (14.0-18.0); Immature Granulocytes % 5.7 %; Lymphocytes # 0.9 10*3/uL (1.4-4.0); Mean Corpuscular HGB Conc 34.1 GM/DL (32-36); Mean Platelet Volume 11.2 FL (9.6-12.0); Monocytes % 10.4 % (1.7-12.7); Neutrophils % 80.6 % (38.7-73.9); Platelet Count 161 T/CUMM (130-400); Red Blood Count 2.54 MC/CUMM (3.8-5.5); Red Cell Distribution Width 15.6 % (9.3-17.3); White Blood Count 29.8 T/CUMM (4-12)
[2020-06-27 04:51] LABS: Albumin 1.9 G/DL (3.4-5.0); Calcium 6.1 MG/DL (8.5-10.1); Osmolality,Calculated 322.7 MOS/KG (273-304)
[2020-06-27 04:54] LABS: Band Neutrophils 1 % (0-10); Hypochromasia 1+; Lymphocytes 6 % (20-55); Platelet Estimate Normal; Segmented Neutrophils 87 % (50-85); Total Cells Counted 100
[2020-06-27] MEDS: methylPREDNISolone SOD SUC 40 MG/1 ML VIAL IV SCH ×2 (05:14→18:11)
[2020-06-27] MEDS ORDERED: SODIUM CHLORIDE 0.9% 1,000 ML IV PRN (06:17)
[2020-06-27] MEDS: METOPROLOL TARTRATE 25 MG TABLET PO SCH ×2 (08:52→22:14)
[2020-06-27] MEDS: TICAGRELOR 90 MG TABLET PO SCH ×2 (08:52→22:14)
[2020-06-27] MEDS: AMIODARONE 200 MG TABLET PO SCH ×2 (08:52→22:14)
[2020-06-27] MEDS: ASPIRIN CHEW 81 MG TABLET PO SCH (08:52)
[2020-06-27] MEDS: ENOXAPARIN 30 MG/0.3 ML SYRINGE SUBCUT SCH (08:52)
[2020-06-27] MEDS: INSULIN GLARGINE 100 UNIT/ML SUBCUT SCH (08:53)
[2020-06-27] MEDS: FAMOTIDINE 20 MG/2 ML VIAL IV SCH (08:56)
[2020-06-27] MEDS: NOREPINEPHRINE 8 MG in SODIUM CHLORIDE 0.9% 242 ML IV PRN (11:15)
[2020-06-27] MEDS: CALCIUM GLUCONATE 2,000 MG in SODIUM CHLORIDE 0.9% 100 ML IV SCH ×2 (15:04→22:13)
[2020-06-27 16:48] LABS: Albumin 1.9 G/DL (3.4-5.0); Bilirubin,Total 0.8 MG/DL (0.2-1.0); Calcium 6.7 MG/DL (8.5-10.1); Potassium 5.5 MMOL/L (3.5-5.1); Total Protein 5.3 G/DL (6.4-8.3)
[2020-06-27] MEDS: ATORVASTATIN 80 MG TABLET PO SCH (22:14)
[2020-06-27] MEDS: MEROPENEM 500 MG in SODIUM CHLORIDE 0.9% 100 ML IV SCH (22:38)
[2020-06-28] MEDS: INSULIN LISPRO 100 UNIT/ML SUBCUT SCH ×6 (00:28→20:40)
[2020-06-28] MEDS: ALBUTEROL 2.5 MG/3 ML NEB RESP TX SCH ×4 (01:20→19:26)
[2020-06-28 03:28] LABS: ABG Base Excess -3.1 MMOL/L (-2.5-2.5); ABG HCO3 21.9 MMOL/L (20-26); ABG Oxygen Saturation 98.5 % (95-100); ABG PCO2 29.7 MM HG (35-48); ABG PH 7.442 (7.35-7.45); ABG TCO2 18.6 MMOL/L (23-27)
[2020-06-28 04:16] LABS: Basophils # 0.1 10*3/uL (0.0-0.2); Basophils % 0.2 % (0.0-0.8); Hemoglobin 9.1 GM/DL (14.0-18.0); Immature Granulocytes % 4.5 %; Lymphocytes # 0.5 10*3/uL (1.4-4.0); Lymphocytes % 1.6 % (21.2-54.2); Mean Corpuscular HGB Conc 32.5 GM/DL (32-36); Mean Corpuscular Volume 88.3 FL (87-102); Mean Platelet Volume 11.3 FL (9.6-12.0); Monocytes % 5.9 % (1.7-12.7); NRBC # 0.04 10*3/uL; Neutrophils % 87.8 % (38.7-73.9); Platelet Count 166 T/CUMM (130-400); Red Cell Distribution Width 16.2 % (9.3-17.3); White Blood Count 28.9 T/CUMM (4-12)
[2020-06-28 04:24] LABS: Red Blood Count 3.17 MC/CUMM (3.8-5.5)
[2020-06-28 04:34] LABS: Calcium 6.4 MG/DL (8.5-10.1); Osmolality,Calculated 323.7 MOS/KG (273-304)
[2020-06-28 04:42] LABS: Potassium 6.2 MMOL/L (3.5-5.1)
[2020-06-28 04:44] LABS: Lymphocytes 3 % (20-55); Segmented Neutrophils 96 % (50-85); Total Cells Counted 100
[2020-06-28 04:45] LABS: Hypochromasia 1+; Platelet Estimate Adequate
[2020-06-28] MEDS: methylPREDNISolone SOD SUC 40 MG/1 ML VIAL IV SCH ×2 (05:15→17:43)
[2020-06-28] MEDS: ENOXAPARIN 30 MG/0.3 ML SYRINGE SUBCUT SCH (08:40)
[2020-06-28] MEDS: AMIODARONE 200 MG TABLET PO SCH ×2 (08:41→20:41)
[2020-06-28] MEDS: ASPIRIN CHEW 81 MG TABLET PO SCH (08:41)
[2020-06-28] MEDS: TICAGRELOR 90 MG TABLET PO SCH ×2 (08:41→20:41)
[2020-06-28] MEDS: INSULIN GLARGINE 100 UNIT/ML SUBCUT SCH (08:42)
[2020-06-28] MEDS: LEVOFLOXACIN INJ 750 MG in PREMIX 1 EACH IV SCH (08:43)
[2020-06-28] MEDS: FAMOTIDINE 20 MG/2 ML VIAL IV SCH (08:44)
[2020-06-28] MEDS: METOPROLOL TARTRATE 25 MG TABLET PO SCH ×2 (08:44→20:41)
[2020-06-28] MEDS: MIDAZOLAM 100 MG in SODIUM CHLORIDE 0.9% 80 ML IV PRN (10:18)
[2020-06-28] MEDS: LINEZOLID INJ 600 MG in PREMIX 1 EACH IV SCH ×2 (10:25→22:23)
[2020-06-28] MEDS: ATORVASTATIN 80 MG TABLET PO SCH (20:41)
[2020-06-28] MEDS: MEROPENEM 500 MG in SODIUM CHLORIDE 0.9% 100 ML IV SCH (20:41)
[2020-06-29] MEDS: ALBUTEROL 2.5 MG/3 ML NEB RESP TX SCH ×5 (00:47→19:35)
[2020-06-29] MEDS: INSULIN LISPRO 100 UNIT/ML SUBCUT SCH ×6 (01:12→20:41)
[2020-06-29] MEDS: ACETAMINOPHEN 500 MG TABLET PO PRN (01:12)
[2020-06-29 04:03] LABS: ABG Base Excess -2.3 MMOL/L (-2.5-2.5); ABG HCO3 22.5 MMOL/L (20-26); ABG Oxygen Saturation 99.4 % (95-100); ABG PCO2 28.7 MM HG (35-48); ABG PH 7.464 (7.35-7.45)
[2020-06-29 04:16] LABS: Basophils % 0.2 % (0.0-0.8); Hematocrit 26.9 VOL% (42.0-52.0); Immature Granulocytes % 3.6 %; Immature Granulocytes Absolute 0.95 #; Lymphocytes # 1.5 10*3/uL (1.4-4.0); Lymphocytes % 5.5 % (21.2-54.2); Mean Corpuscular HGB Conc 33.5 GM/DL (32-36); Mean Corpuscular Volume 86.5 FL (87-102); Mean Platelet Volume 11.7 FL (9.6-12.0); Monocytes % 3.3 % (1.7-12.7); NRBC # 0.05 10*3/uL; Neutrophils % 87.4 % (38.7-73.9); Platelet Count 177 T/CUMM (130-400); Red Blood Count 3.11 MC/CUMM (3.8-5.5); White Blood Count 26.6 T/CUMM (4-12)
[2020-06-29 04:31] LABS: Calcium 6.3 MG/DL (8.5-10.1); Osmolality,Calculated 323.7 MOS/KG (273-304); Potassium 5.7 MMOL/L (3.5-5.1)
[2020-06-29 04:34] LABS: Hypochromasia 1+; Lymphocytes 3 % (20-55); Microcytosis 1+; Platelet Estimate Adequate; Segmented Neutrophils 89 % (50-85); Total Cells Counted 100
[2020-06-29] MEDS: methylPREDNISolone SOD SUC 40 MG/1 ML VIAL IV SCH ×2 (05:59→18:41)
[2020-06-29] MEDS: TICAGRELOR 90 MG TABLET PO SCH ×2 (08:37→20:32)
[2020-06-29] MEDS: ASPIRIN CHEW 81 MG TABLET PO SCH (08:37)
[2020-06-29] MEDS: METOPROLOL TARTRATE 25 MG TABLET PO SCH ×2 (08:37→20:31)
[2020-06-29] MEDS: ENOXAPARIN 30 MG/0.3 ML SYRINGE SUBCUT SCH (08:38)
[2020-06-29] MEDS: INSULIN GLARGINE 100 UNIT/ML SUBCUT SCH (08:38)
[2020-06-29] MEDS: AMIODARONE 200 MG TABLET PO SCH ×2 (08:38→20:31)
[2020-06-29] MEDS: FAMOTIDINE 20 MG/2 ML VIAL IV SCH (08:39)
[2020-06-29] MEDS ORDERED: CALCIUM GLUCONATE 2,000 MG in SODIUM CHLORIDE 0.9% 100 ML IV ONE (10:00)
[2020-06-29] MEDS: MIDAZOLAM 100 MG in SODIUM CHLORIDE 0.9% 80 ML IV PRN (10:06)
[2020-06-29] MEDS: LINEZOLID INJ 600 MG in PREMIX 1 EACH IV SCH ×2 (10:07→22:23)
[2020-06-29] MEDS: MEROPENEM 500 MG in SODIUM CHLORIDE 0.9% 100 ML IV SCH (20:32)
[2020-06-29] MEDS: ATORVASTATIN 80 MG TABLET PO SCH (20:32)
[2020-06-30] MEDS: INSULIN LISPRO 100 UNIT/ML SUBCUT SCH ×6 (00:20→20:20)
[2020-06-30] MEDS: MORPHINE 4 MG/1 ML VIAL IV PRN ×3 (00:50→17:58)
[2020-06-30 04:03] LABS: ABG Base Excess -4.7 MMOL/L (-2.5-2.5); ABG HCO3 20.5 MMOL/L (20-26); ABG Oxygen Saturation 99.4 % (95-100); ABG PCO2 31.7 MM HG (35-48); ABG PH 7.396 (7.35-7.45)
[2020-06-30 04:06] LABS: Basophils % 0.1 % (0.0-0.8); Hematocrit 26.3 VOL% (42.0-52.0); Hemoglobin 8.5 GM/DL (14.0-18.0); Immature Granulocytes Absolute 0.55 #; Lymphocytes # 0.4 10*3/uL (1.4-4.0); Lymphocytes % 1.4 % (21.2-54.2); Mean Corpuscular HGB Conc 32.3 GM/DL (32-36); Mean Corpuscular Volume 89.5 FL (87-102); Mean Platelet Volume 11.4 FL (9.6-12.0); Monocytes % 4.3 % (1.7-12.7); Neutrophils % 92.2 % (38.7-73.9); Platelet Count 170 T/CUMM (130-400); Red Blood Count 2.94 MC/CUMM (3.8-5.5); Red Cell Distribution Width 15.8 % (9.3-17.3); White Blood Count 27.1 T/CUMM (4-12)
[2020-06-30 04:26] LABS: Lymphocytes 2 % (20-55); Platelet Estimate Adequate; Segmented Neutrophils 89 % (50-85); Total Cells Counted 100
[2020-06-30 04:27] LABS: Hypochromasia 1+; Microcytosis 1+
[2020-06-30 04:30] LABS: Calcium 6.1 MG/DL (8.5-10.1); Osmolality,Calculated 332.7 MOS/KG (273-304); Potassium 5.9 MMOL/L (3.5-5.1)
[2020-06-30] MEDS: methylPREDNISolone SOD SUC 40 MG/1 ML VIAL IV SCH ×2 (06:10→17:51)
[2020-06-30] MEDS: ALBUTEROL 2.5 MG/3 ML NEB RESP TX SCH ×3 (07:12→19:50)
[2020-06-30] MEDS: LEVOFLOXACIN INJ 750 MG in PREMIX 1 EACH IV SCH (08:14)
[2020-06-30] MEDS: ENOXAPARIN 30 MG/0.3 ML SYRINGE SUBCUT SCH (08:14)
[2020-06-30] MEDS: FAMOTIDINE 20 MG/2 ML VIAL IV SCH (08:14)
[2020-06-30] MEDS: INSULIN GLARGINE 100 UNIT/ML SUBCUT SCH (08:15)
[2020-06-30] MEDS: ASPIRIN CHEW 81 MG TABLET PO SCH (08:15)
[2020-06-30] MEDS: METOPROLOL TARTRATE 25 MG TABLET PO SCH ×2 (08:15→20:20)
[2020-06-30] MEDS: AMIODARONE 200 MG TABLET PO SCH ×2 (08:16→20:20)
[2020-06-30] MEDS: TICAGRELOR 90 MG TABLET PO SCH ×2 (08:16→20:20)
[2020-06-30] MEDS: LINEZOLID INJ 600 MG in PREMIX 1 EACH IV SCH ×2 (09:22→21:54)
[2020-06-30] MEDS: CALCIUM GLUCONATE 2,000 MG in SODIUM CHLORIDE 0.9% 100 ML IV SCH ×2 (09:22→15:26)
[2020-06-30] MEDS: MIDAZOLAM 100 MG in SODIUM CHLORIDE 0.9% 80 ML IV PRN (09:23)
[2020-06-30] MEDS ORDERED: HYDROmorphone 2 MG/1 ML VIAL IV ONE (18:04)
[2020-06-30 18:12] LABS: ABG Base Excess -3.2 MMOL/L (-2.5-2.5); ABG HCO3 21.8 MMOL/L (20-26); ABG Oxygen Saturation 99.3 % (95-100); ABG PCO2 32.8 MM HG (35-48); ABG PH 7.407 (7.35-7.45); ABG TCO2 18.1 MMOL/L (23-27)
[2020-06-30 18:12] LABS: Basophils % 0.1 % (0.0-0.8); Hematocrit 27.5 VOL% (42.0-52.0); Hemoglobin 8.9 GM/DL (14.0-18.0); Immature Granulocytes % 2.4 %; Immature Granulocytes Absolute 0.67 #; Lymphocytes # 0.2 10*3/uL (1.4-4.0); Lymphocytes % 0.7 % (21.2-54.2); Mean Corpuscular HGB Conc 32.4 GM/DL (32-36); Mean Corpuscular Volume 88.1 FL (87-102); Mean Platelet Volume 11.7 FL (9.6-12.0); Monocytes % 6.4 % (1.7-12.7); Neutrophils % 90.4 % (38.7-73.9); Platelet Count 194 T/CUMM (130-400); Red Blood Count 3.12 MC/CUMM (3.8-5.5); Red Cell Distribution Width 15.7 % (9.3-17.3); White Blood Count 27.6 T/CUMM (4-12)
[2020-06-30 18:20] LABS: INR 1.1; PT Patient Result 12.2 SECS (9.8-11.9)
[2020-06-30 18:31] LABS: Osmolality,Calculated 322.7 MOS/KG (273-304); Potassium 5.3 MMOL/L (3.5-5.1)
[2020-06-30 19:13] LABS: Segmented Neutrophils 99 % (50-85); Total Cells Counted 100
[2020-06-30] MEDS: ATORVASTATIN 80 MG TABLET PO SCH (20:20)
[2020-07-01] MEDS: INSULIN LISPRO 100 UNIT/ML SUBCUT SCH ×6 (00:50→20:25)
[2020-07-01] MEDS: ALBUTEROL 2.5 MG/3 ML NEB RESP TX SCH ×4 (01:58→19:18)
[2020-07-01 03:33] LABS: Basophils % 0.2 % (0.0-0.8); Hematocrit 26.4 VOL% (42.0-52.0); Hemoglobin 8.6 GM/DL (14.0-18.0); Immature Granulocytes % 1.8 %; Immature Granulocytes Absolute 0.41 #; Lymphocytes # 0.2 10*3/uL (1.4-4.0); Lymphocytes % 0.7 % (21.2-54.2); Mean Corpuscular HGB Conc 32.6 GM/DL (32-36); Mean Corpuscular Volume 89.2 FL (87-102); Mean Platelet Volume 11.6 FL (9.6-12.0); Neutrophils % 92.3 % (38.7-73.9); Platelet Count 166 T/CUMM (130-400); Red Blood Count 2.96 MC/CUMM (3.8-5.5); Red Cell Distribution Width 15.7 % (9.3-17.3); White Blood Count 23.2 T/CUMM (4-12)
[2020-07-01 03:34] LABS: ABG Base Excess -4.5 MMOL/L (-2.5-2.5); ABG HCO3 20.7 MMOL/L (20-26); ABG Oxygen Saturation 99.6 % (95-100); ABG PCO2 33.7 MM HG (35-48); ABG PH 7.381 (7.35-7.45); ABG TCO2 18.5 MMOL/L (23-27)
[2020-07-01 03:53] LABS: Lymphocytes 1 % (20-55); Platelet Estimate Normal; Segmented Neutrophils 97 % (50-85); Total Cells Counted 100
[2020-07-01 03:54] LABS: Hypochromasia Slight
[2020-07-01 03:55] LABS: Calcium 6.6 MG/DL (8.5-10.1); Potassium 5.7 MMOL/L (3.5-5.1)
[2020-07-01] MEDS: MORPHINE 4 MG/1 ML VIAL IV PRN (06:50)
[2020-07-01] MEDS: methylPREDNISolone SOD SUC 40 MG/1 ML VIAL IV SCH ×2 (06:52→17:15)
[2020-07-01] MEDS: ENOXAPARIN 30 MG/0.3 ML SYRINGE SUBCUT SCH (08:10)
[2020-07-01] MEDS: FAMOTIDINE 20 MG/2 ML VIAL IV SCH (08:13)
[2020-07-01] MEDS: ASPIRIN CHEW 81 MG TABLET PO SCH (08:14)
[2020-07-01] MEDS: HYDROmorphone 2 MG/1 ML VIAL IV PRN ×2 (08:14→20:13)
[2020-07-01] MEDS: AMIODARONE 200 MG TABLET PO SCH ×2 (08:14→20:25)
[2020-07-01] MEDS: METOPROLOL TARTRATE 25 MG TABLET PO SCH ×2 (08:14→20:25)
[2020-07-01] MEDS: INSULIN GLARGINE 100 UNIT/ML SUBCUT SCH (08:15)
[2020-07-01] MEDS: TICAGRELOR 90 MG TABLET PO SCH ×2 (08:29→20:25)
[2020-07-01] MEDS ORDERED: SODIUM POLYSTYRENE SULFATE 15 GM/60 ML BOTTLE PER TUBE ONE (09:00)
[2020-07-01] MEDS: LINEZOLID INJ 600 MG in PREMIX 1 EACH IV SCH ×2 (09:02→22:26)
[2020-07-01] MEDS ORDERED: ALBUMIN 25% 25 GM in PREMIX 1 EACH IV ONE (11:28)
[2020-07-01] MEDS: ATORVASTATIN 80 MG TABLET PO SCH (20:25)
[2020-07-02] MEDS: ALBUTEROL 2.5 MG/3 ML NEB RESP TX SCH ×4 (00:22→19:09)
[2020-07-02] MEDS: HYDROmorphone 2 MG/1 ML VIAL IV PRN ×5 (00:50→22:10)
[2020-07-02] MEDS: INSULIN LISPRO 100 UNIT/ML SUBCUT SCH ×6 (00:50→21:20)
[2020-07-02 04:55] LABS: ABG Base Excess -0.2 MMOL/L (-2.5-2.5); ABG HCO3 24.3 MMOL/L (20-26); ABG PCO2 36.3 MM HG (35-48); ABG PH 7.427 (7.35-7.45); ABG TCO2 22.5 MMOL/L (23-27)
[2020-07-02 04:59] LABS: Basophils % 0.1 % (0.0-0.8); Hematocrit 22.6 VOL% (42.0-52.0); Hemoglobin 7.4 GM/DL (14.0-18.0); Immature Granulocytes % 1.2 %; Immature Granulocytes Absolute 0.29 #; Lymphocytes # 0.3 10*3/uL (1.4-4.0); Lymphocytes % 1.3 % (21.2-54.2); Mean Corpuscular HGB Conc 32.7 GM/DL (32-36); Mean Platelet Volume 11.5 FL (9.6-12.0); Neutrophils % 88.4 % (38.7-73.9); Platelet Count 167 T/CUMM (130-400); Red Blood Count 2.54 MC/CUMM (3.8-5.5); Red Cell Distribution Width 15.6 % (9.3-17.3); White Blood Count 24.5 T/CUMM (4-12)
[2020-07-02] MEDS: methylPREDNISolone SOD SUC 40 MG/1 ML VIAL IV SCH ×2 (05:02→18:12)
[2020-07-02 05:13] LABS: Calcium 6.7 MG/DL (8.5-10.1); Osmolality,Calculated 314.5 MOS/KG (273-304); Potassium 4.8 MMOL/L (3.5-5.1)
[2020-07-02 05:17] LABS: Hypochromasia 1+; Lymphocytes 1 % (20-55); Microcytosis 1+; Platelet Estimate Adequate; Segmented Neutrophils 87 % (50-85); Total Cells Counted 100
[2020-07-02] MEDS ORDERED: SODIUM CHLORIDE 0.9% 1,000 ML IV PRN (08:16)
[2020-07-02] MEDS: LEVOFLOXACIN INJ 750 MG in PREMIX 1 EACH IV SCH (09:32)
[2020-07-02] MEDS: ENOXAPARIN 30 MG/0.3 ML SYRINGE SUBCUT SCH (09:55)
[2020-07-02] MEDS: ASPIRIN CHEW 81 MG TABLET PO SCH (09:56)
[2020-07-02] MEDS: TICAGRELOR 90 MG TABLET PO SCH ×2 (09:56→21:20)
[2020-07-02] MEDS: METOPROLOL TARTRATE 25 MG TABLET PO SCH ×2 (09:56→21:20)
[2020-07-02] MEDS: AMIODARONE 200 MG TABLET PO SCH ×2 (09:56→21:20)
[2020-07-02] MEDS: INSULIN GLARGINE 100 UNIT/ML SUBCUT SCH (09:57)
[2020-07-02] MEDS: FAMOTIDINE 20 MG/2 ML VIAL IV SCH (12:51)
[2020-07-02] MEDS: LINEZOLID INJ 600 MG in PREMIX 1 EACH IV SCH ×2 (12:56→21:25)
[2020-07-02] MEDS: ATORVASTATIN 80 MG TABLET PO SCH (21:20)
[2020-07-03] MEDS: INSULIN LISPRO 100 UNIT/ML SUBCUT SCH ×6 (01:09→20:15)
[2020-07-03] MEDS: NYSTATIN POWDER 15 GM BOTTLE TOP SCH ×3 (01:10→21:10)
[2020-07-03] MEDS: HYDROmorphone 2 MG/1 ML VIAL IV PRN ×5 (01:30→19:45)
[2020-07-03] MEDS: ALBUTEROL 2.5 MG/3 ML NEB RESP TX SCH ×4 (01:36→18:39)
[2020-07-03] MEDS: MORPHINE 4 MG/1 ML VIAL IV PRN ×2 (04:30→21:00)
[2020-07-03 05:02] LABS: ABG Base Excess -0.8 MMOL/L (-2.5-2.5); ABG HCO3 23.7 MMOL/L (20-26); ABG PCO2 32.5 MM HG (35-48); ABG PH 7.451 (7.35-7.45); ABG PO2 69.4 MM HG (80-95); ABG TCO2 20.8 MMOL/L (23-27); Allen Test Positive; Pt O2 Delivery Device BIPAP
[2020-07-03 05:09] LABS: Basophils # 0.1 10*3/uL (0.0-0.2); Basophils % 0.2 % (0.0-0.8); Hematocrit 27.6 VOL% (42.0-52.0); Hemoglobin 9.2 GM/DL (14.0-18.0); Immature Granulocytes % 1.2 %; Immature Granulocytes Absolute 0.35 #; Lymphocytes # 0.2 10*3/uL (1.4-4.0); Lymphocytes % 0.6 % (21.2-54.2); Mean Corpuscular HGB Conc 33.3 GM/DL (32-36); Mean Corpuscular Volume 85.7 FL (87-102); Mean Platelet Volume 11.7 FL (9.6-12.0); Monocytes % 8.4 % (1.7-12.7); NRBC # 0.02 10*3/uL; Neutrophils % 89.6 % (38.7-73.9); Platelet Count 170 T/CUMM (130-400); Red Blood Count 3.22 MC/CUMM (3.8-5.5); Red Cell Distribution Width 17.2 % (9.3-17.3); White Blood Count 29.8 T/CUMM (4-12)
[2020-07-03 05:43] LABS: Calcium 6.4 MG/DL (8.5-10.1); Osmolality,Calculated 313.4 MOS/KG (273-304); Potassium 4.3 MMOL/L (3.5-5.1)
[2020-07-03 05:46] LABS: Hypochromasia Slight; Lymphocytes 2 % (20-55); Platelet Estimate Normal; Segmented Neutrophils 92 % (50-85); Total Cells Counted 100
[2020-07-03 05:47] LABS: Microcytosis Slight
[2020-07-03] MEDS: methylPREDNISolone SOD SUC 40 MG/1 ML VIAL IV SCH ×2 (06:14→17:44)
[2020-07-03] MEDS: ENOXAPARIN 30 MG/0.3 ML SYRINGE SUBCUT SCH (08:10)
[2020-07-03] MEDS: AMIODARONE 200 MG TABLET PO SCH ×2 (09:35→20:15)
[2020-07-03] MEDS: ASPIRIN CHEW 81 MG TABLET PO SCH (09:35)
[2020-07-03] MEDS: TICAGRELOR 90 MG TABLET PO SCH ×2 (09:35→20:15)
[2020-07-03] MEDS: METOPROLOL TARTRATE 25 MG TABLET PO SCH ×2 (09:35→20:15)
[2020-07-03] MEDS: INSULIN GLARGINE 100 UNIT/ML SUBCUT SCH (09:35)
[2020-07-03] MEDS: FAMOTIDINE 20 MG/2 ML VIAL IV SCH (12:21)
[2020-07-03] MEDS: LINEZOLID INJ 600 MG in PREMIX 1 EACH IV SCH ×2 (12:25→22:32)
[2020-07-03] MEDS: ATORVASTATIN 80 MG TABLET PO SCH (20:15)
[2020-07-03] MEDS: ACETAMINOPHEN 500 MG TABLET PO PRN (21:00)
[2020-07-04] MEDS: INSULIN LISPRO 100 UNIT/ML SUBCUT SCH ×6 (00:20→20:27)
[2020-07-04] MEDS: ALBUTEROL 2.5 MG/3 ML NEB RESP TX SCH ×4 (01:24→19:22)
[2020-07-04 04:20] LABS: ABG Base Excess -0.9 MMOL/L (-2.5-2.5); ABG HCO3 23.7 MMOL/L (20-26); ABG Oxygen Saturation 97.4 % (95-100); ABG PCO2 28.8 MM HG (35-48); ABG PH 7.484 (7.35-7.45); ABG PO2 92.9 MM HG (80-95); ABG TCO2 19.3 MMOL/L (23-27)
[2020-07-04 04:26] LABS: Basophils % 0.1 % (0.0-0.8); Hematocrit 26.7 VOL% (42.0-52.0); Hemoglobin 8.7 GM/DL (14.0-18.0); Immature Granulocytes % 0.9 %; Immature Granulocytes Absolute 0.27 #; Lymphocytes # 0.2 10*3/uL (1.4-4.0); Lymphocytes % 0.7 % (21.2-54.2); Mean Corpuscular HGB Conc 32.6 GM/DL (32-36); Mean Corpuscular Volume 87.3 FL (87-102); Mean Platelet Volume 10.8 FL (9.6-12.0); Monocytes % 8.2 % (1.7-12.7); Neutrophils % 90.1 % (38.7-73.9); Platelet Count 131 T/CUMM (130-400); Red Blood Count 3.06 MC/CUMM (3.8-5.5); White Blood Count 28.9 T/CUMM (4-12)
[2020-07-04 05:10] LABS: Calcium 6.4 MG/DL (8.5-10.1); Osmolality,Calculated 318.3 MOS/KG (273-304); Potassium 4.5 MMOL/L (3.5-5.1)
[2020-07-04] MEDS: methylPREDNISolone SOD SUC 40 MG/1 ML VIAL IV SCH (05:45)
[2020-07-04] MEDS: ONDANSETRON 4 MG/2 ML VIAL IV PRN ×2 (05:45→14:00)
[2020-07-04 07:04] LABS: Lymphocytes 1 % (20-55); Polychromasia Slight; Segmented Neutrophils 93 % (50-85); Total Cells Counted 100
[2020-07-04 07:06] LABS: Ovalocytes Few; Platelet Estimate Adequate
[2020-07-04] MEDS: ENOXAPARIN 30 MG/0.3 ML SYRINGE SUBCUT SCH (08:40)
[2020-07-04] MEDS: HYDROmorphone 2 MG/1 ML VIAL IV PRN ×2 (08:45→22:50)
[2020-07-04] MEDS: TICAGRELOR 90 MG TABLET PO SCH ×2 (09:02→20:28)
[2020-07-04] MEDS: AMIODARONE 200 MG TABLET PO SCH ×2 (09:02→20:28)
[2020-07-04] MEDS: ASPIRIN CHEW 81 MG TABLET PO SCH (09:02)
[2020-07-04] MEDS: NYSTATIN POWDER 15 GM BOTTLE TOP SCH ×2 (09:03→20:28)
[2020-07-04] MEDS: INSULIN GLARGINE 100 UNIT/ML SUBCUT SCH (09:03)
[2020-07-04] MEDS: METOPROLOL TARTRATE 25 MG TABLET PO SCH ×2 (09:03→20:28)
[2020-07-04] MEDS: FAMOTIDINE 20 MG/2 ML VIAL IV SCH (09:03)
[2020-07-04] MEDS: LINEZOLID INJ 600 MG in PREMIX 1 EACH IV SCH ×2 (09:04→22:49)
[2020-07-04] MEDS: MORPHINE 4 MG/1 ML VIAL IV PRN ×2 (13:17→17:07)
[2020-07-04] MEDS: ATORVASTATIN 80 MG TABLET PO SCH (20:28)
[2020-07-05] MEDS: INSULIN LISPRO 100 UNIT/ML SUBCUT SCH ×6 (00:31→20:45)
[2020-07-05] MEDS: ALBUTEROL 2.5 MG/3 ML NEB RESP TX SCH ×4 (00:35→19:20)
[2020-07-05] MEDS: ONDANSETRON 4 MG/2 ML VIAL IV PRN (03:41)
[2020-07-05 04:53] LABS: Basophils # 0.1 10*3/uL (0.0-0.2); Basophils % 0.2 % (0.0-0.8); Hematocrit 29.5 VOL% (42.0-52.0); Hemoglobin 9.5 GM/DL (14.0-18.0); Immature Granulocytes % 1.1 %; Immature Granulocytes Absolute 0.38 #; Lymphocytes # 0.4 10*3/uL (1.4-4.0); Lymphocytes % 1.1 % (21.2-54.2); Mean Corpuscular HGB Conc 32.2 GM/DL (32-36); Mean Platelet Volume 11.2 FL (9.6-12.0); Monocytes % 5.5 % (1.7-12.7); NRBC # 0.02 10*3/uL; Neutrophils % 92.1 % (38.7-73.9); Platelet Count 129 T/CUMM (130-400); Red Blood Count 3.39 MC/CUMM (3.8-5.5); Red Cell Distribution Width 17.2 % (9.3-17.3); White Blood Count 35.7 T/CUMM (4-12)
[2020-07-05 05:00] LABS: Calcium 6.2 MG/DL (8.5-10.1); Potassium 4.7 MMOL/L (3.5-5.1)
[2020-07-05] MEDS: MORPHINE 4 MG/1 ML VIAL IV PRN ×3 (05:20→17:51)
[2020-07-05 07:07] LABS: Lymphocytes 4 % (20-55); Microcytosis Slight; Segmented Neutrophils 93 % (50-85); Total Cells Counted 100
[2020-07-05 07:08] LABS: Platelet Estimate Decreased; Polychromasia Slight; Schistocytes Few
[2020-07-05] MEDS: ENOXAPARIN 30 MG/0.3 ML SYRINGE SUBCUT SCH (09:18)
[2020-07-05] MEDS: AMIODARONE 200 MG TABLET PO SCH (09:18)
[2020-07-05] MEDS: TICAGRELOR 90 MG TABLET PO SCH ×2 (09:18→20:46)
[2020-07-05] MEDS: ASPIRIN CHEW 81 MG TABLET PO SCH (09:18)
[2020-07-05] MEDS: LINEZOLID INJ 600 MG in PREMIX 1 EACH IV SCH (09:19)
[2020-07-05] MEDS: NYSTATIN POWDER 15 GM BOTTLE TOP SCH ×2 (09:19→20:46)
[2020-07-05] MEDS: METOPROLOL TARTRATE 25 MG TABLET PO SCH ×2 (09:19→20:46)
[2020-07-05] MEDS: methylPREDNISolone SOD SUC 40 MG/1 ML VIAL IV SCH (09:19)
[2020-07-05] MEDS: FAMOTIDINE 20 MG/2 ML VIAL IV SCH (09:19)
[2020-07-05] MEDS: INSULIN GLARGINE 100 UNIT/ML SUBCUT SCH (09:19)
[2020-07-05] MEDS: ATORVASTATIN 80 MG TABLET PO SCH (20:46)
[2020-07-06] MEDS: ALBUTEROL 2.5 MG/3 ML NEB RESP TX SCH ×4 (00:21→18:57)
[2020-07-06] MEDS: INSULIN LISPRO 100 UNIT/ML SUBCUT SCH ×6 (00:24→22:14)
[2020-07-06] MEDS: ONDANSETRON 4 MG/2 ML VIAL IV PRN ×2 (00:25→08:37)
[2020-07-06 03:41] LABS: Basophils % 0.1 % (0.0-0.8); Hematocrit 27.1 VOL% (42.0-52.0); Hemoglobin 8.9 GM/DL (14.0-18.0); Immature Granulocytes % 0.8 %; Immature Granulocytes Absolute 0.25 #; Lymphocytes # 0.3 10*3/uL (1.4-4.0); Lymphocytes % 0.9 % (21.2-54.2); Mean Corpuscular HGB Conc 32.8 GM/DL (32-36); Mean Platelet Volume 11.1 FL (9.6-12.0); Monocytes % 5.5 % (1.7-12.7); Neutrophils % 92.7 % (38.7-73.9); Platelet Count 112 T/CUMM (130-400); Red Blood Count 3.08 MC/CUMM (3.8-5.5); Red Cell Distribution Width 16.9 % (9.3-17.3)
[2020-07-06 03:48] LABS: Calcium 6.1 MG/DL (8.5-10.1); Osmolality,Calculated 321.4 MOS/KG (273-304); Potassium 4.9 MMOL/L (3.5-5.1)
[2020-07-06] MEDS: methylPREDNISolone SOD SUC 40 MG/1 ML VIAL IV SCH (08:36)
[2020-07-06] MEDS: METOPROLOL TARTRATE 25 MG TABLET PO SCH ×2 (08:36→22:16)
[2020-07-06] MEDS: ASPIRIN CHEW 81 MG TABLET PO SCH (08:36)
[2020-07-06] MEDS: NYSTATIN POWDER 15 GM BOTTLE TOP SCH ×2 (08:36→22:16)
[2020-07-06] MEDS: ENOXAPARIN 30 MG/0.3 ML SYRINGE SUBCUT SCH (08:36)
[2020-07-06] MEDS: FAMOTIDINE 20 MG/2 ML VIAL IV SCH (08:36)
[2020-07-06] MEDS: AMIODARONE 200 MG TABLET PO SCH (08:36)
[2020-07-06] MEDS: TICAGRELOR 90 MG TABLET PO SCH ×2 (08:36→22:15)
[2020-07-06] MEDS: INSULIN GLARGINE 100 UNIT/ML SUBCUT SCH (08:36)
[2020-07-06 08:50] LABS: Anisocytosis 1+; Platelet Estimate Adequate
[2020-07-06] MEDS: LINEZOLID INJ 600 MG in PREMIX 1 EACH IV SCH ×2 (10:32→22:16)
[2020-07-06] MEDS: cefTRIAXone 1,000 MG in SYRINGE 1 EACH IV SCH (12:28)
[2020-07-06] MEDS: ATORVASTATIN 80 MG TABLET PO SCH (22:15)
[2020-07-07] MEDS: ALBUTEROL 2.5 MG/3 ML NEB RESP TX SCH ×5 (00:25→19:29)
[2020-07-07] MEDS: INSULIN LISPRO 100 UNIT/ML SUBCUT SCH ×5 (00:50→17:37)
[2020-07-07 03:38] LABS: Basophils % 0.1 % (0.0-0.8); Hematocrit 28.3 VOL% (42.0-52.0); Hemoglobin 8.7 GM/DL (14.0-18.0); Immature Granulocytes % 1.6 %; Immature Granulocytes Absolute 0.56 #; Lymphocytes # 0.3 10*3/uL (1.4-4.0); Lymphocytes % 0.9 % (21.2-54.2); Mean Corpuscular HGB Conc 30.7 GM/DL (32-36); Mean Corpuscular Volume 90.4 FL (87-102); Mean Platelet Volume 11.5 FL (9.6-12.0); Monocytes % 5.5 % (1.7-12.7); Neutrophils % 91.9 % (38.7-73.9); Platelet Count 108 T/CUMM (130-400); Red Blood Count 3.13 MC/CUMM (3.8-5.5); Red Cell Distribution Width 16.9 % (9.3-17.3); White Blood Count 35.6 T/CUMM (4-12)
[2020-07-07 04:08] LABS: Calcium 5.9 MG/DL (8.5-10.1); Osmolality,Calculated 330.4 MOS/KG (273-304); Potassium 5.7 MMOL/L (3.5-5.1)
[2020-07-07 04:09] LABS: Albumin 1.7 G/DL (3.4-5.0); Bilirubin,Direct 0.32 MG/DL (0.0-0.20); Bilirubin,Indirect 1.5 MG/DL (0.0-1.0); Bilirubin,Total 1.8 MG/DL (0.2-1.0); Total Protein 5.3 G/DL (6.4-8.3)
[2020-07-07 04:13] LABS: Hypochromasia 1+; Microcytosis 1+; Platelet Estimate Decreased
[2020-07-07] MEDS: ONDANSETRON 4 MG/2 ML VIAL IV PRN ×2 (04:50→21:36)
[2020-07-07] MEDS ORDERED: METOPROLOL TARTRATE 50 MG TABLET ONE (08:09)
[2020-07-07] MEDS: TICAGRELOR 90 MG TABLET PO SCH ×2 (08:25→21:16)
[2020-07-07] MEDS: ASPIRIN CHEW 81 MG TABLET PO SCH (08:25)
[2020-07-07] MEDS: FAMOTIDINE 20 MG/2 ML VIAL IV SCH (08:25)
[2020-07-07] MEDS: METOPROLOL TARTRATE 25 MG TABLET PO SCH ×2 (08:26→21:17)
[2020-07-07] MEDS: ENOXAPARIN 30 MG/0.3 ML SYRINGE SUBCUT SCH (08:26)
[2020-07-07] MEDS: methylPREDNISolone SOD SUC 40 MG/1 ML VIAL IV SCH (08:27)
[2020-07-07] MEDS: NYSTATIN POWDER 15 GM BOTTLE TOP SCH ×2 (08:27→21:17)
[2020-07-07] MEDS: INSULIN GLARGINE 100 UNIT/ML SUBCUT SCH (09:06)
[2020-07-07] MEDS: MORPHINE 4 MG/1 ML VIAL IV PRN (10:20)
[2020-07-07] MEDS: LINEZOLID INJ 600 MG in PREMIX 1 EACH IV SCH ×2 (10:20→21:36)
[2020-07-07] MEDS: cefTRIAXone 1,000 MG in SYRINGE 1 EACH IV SCH (11:16)
[2020-07-07] MEDS: HYDROmorphone 2 MG/1 ML VIAL IV PRN (14:55)
[2020-07-07] MEDS: ATORVASTATIN 80 MG TABLET PO SCH (21:16)
[2020-07-08] MEDS: INSULIN LISPRO 100 UNIT/ML SUBCUT SCH ×4 (00:52→17:30)
[2020-07-08] MEDS: ALBUTEROL 2.5 MG/3 ML NEB RESP TX SCH ×4 (02:00→19:29)
[2020-07-08 02:59] LABS: Allen Test Positive
[2020-07-08 03:01] LABS: ABG Base Excess -2.7 MMOL/L (-2.5-2.5); ABG Oxygen Saturation 97.6 % (95-100); ABG PCO2 27.6 MM HG (35-48); ABG PH 7.477 (7.35-7.45); ABG PO2 131.3 MM HG (80-95); ABG TCO2 20.8 MMOL/L (23-27)
[2020-07-08 05:52] LABS: Basophils % 0.1 % (0.0-0.8); Hematocrit 26.7 VOL% (42.0-52.0); Hemoglobin 8.3 GM/DL (14.0-18.0); Immature Granulocytes % 1.1 %; Immature Granulocytes Absolute 0.36 #; Lymphocytes # 0.3 10*3/uL (1.4-4.0); Lymphocytes % 0.8 % (21.2-54.2); Mean Corpuscular HGB Conc 31.1 GM/DL (32-36); Mean Corpuscular Volume 89.9 FL (87-102); Mean Platelet Volume 11.4 FL (9.6-12.0); Monocytes % 5.8 % (1.7-12.7); NRBC # 0.02 10*3/uL; Neutrophils % 92.2 % (38.7-73.9); Platelet Count 111 T/CUMM (130-400); Red Blood Count 2.97 MC/CUMM (3.8-5.5); Red Cell Distribution Width 16.9 % (9.3-17.3); White Blood Count 31.9 T/CUMM (4-12)
[2020-07-08 06:10] LABS: Calcium 6.1 MG/DL (8.5-10.1); Osmolality,Calculated 322.8 MOS/KG (273-304); Potassium 5.6 MMOL/L (3.5-5.1)
[2020-07-08] MEDS: ONDANSETRON 4 MG/2 ML VIAL IV PRN ×3 (06:21→21:18)
[2020-07-08 06:28] LABS: Anisocytosis 1+; Band Neutrophils 7 % (0-10); Lymphocytes 1 % (20-55); Platelet Estimate Adequate; Segmented Neutrophils 89 % (50-85); Smudge Cells Few; Total Cells Counted 100
[2020-07-08 07:49] LABS: Albumin 1.7 G/DL (3.4-5.0); Bilirubin,Direct 0.28 MG/DL (0.0-0.20); Bilirubin,Indirect 0.4 MG/DL (0.0-1.0); Bilirubin,Total 0.7 MG/DL (0.2-1.0); Total Protein 5.3 G/DL (6.4-8.3)
[2020-07-08] MEDS: ENOXAPARIN 30 MG/0.3 ML SYRINGE SUBCUT SCH (10:10)
[2020-07-08] MEDS: INSULIN GLARGINE 100 UNIT/ML SUBCUT SCH (10:11)
[2020-07-08] MEDS: METOPROLOL TARTRATE 25 MG TABLET PO SCH ×2 (10:11→21:18)
[2020-07-08] MEDS: NYSTATIN POWDER 15 GM BOTTLE TOP SCH ×2 (10:11→21:18)
[2020-07-08] MEDS: ASPIRIN CHEW 81 MG TABLET PO SCH (10:11)
[2020-07-08] MEDS: TICAGRELOR 90 MG TABLET PO SCH ×2 (10:11→21:18)
[2020-07-08] MEDS: methylPREDNISolone SOD SUC 40 MG/1 ML VIAL IV SCH (10:11)
[2020-07-08] MEDS: FAMOTIDINE 20 MG/2 ML VIAL IV SCH (10:13)
[2020-07-08] MEDS: LINEZOLID INJ 600 MG in PREMIX 1 EACH IV SCH ×2 (10:15→21:31)
[2020-07-08] MEDS: cefTRIAXone 1,000 MG in SYRINGE 1 EACH IV SCH (12:20)
[2020-07-08] MEDS ORDERED: HEPARIN 10,000 UNIT/10 ML VIAL IV SCH (15:15)
[2020-07-08] MEDS: ATORVASTATIN 80 MG TABLET PO SCH (21:18)
[2020-07-09] MEDS: ALBUTEROL 2.5 MG/3 ML NEB RESP TX SCH ×4 (00:01→19:54)
[2020-07-09] MEDS: INSULIN LISPRO 100 UNIT/ML SUBCUT SCH ×4 (00:51→18:09)
[2020-07-09] MEDS: ONDANSETRON 4 MG/2 ML VIAL IV PRN ×3 (04:23→12:12)
[2020-07-09 04:52] LABS: Basophils % 0.1 % (0.0-0.8); Hematocrit 23.9 VOL% (42.0-52.0); Hemoglobin 7.5 GM/DL (14.0-18.0); Immature Granulocytes % 1.5 %; Immature Granulocytes Absolute 0.44 #; Lymphocytes # 0.4 10*3/uL (1.4-4.0); Lymphocytes % 1.2 % (21.2-54.2); Mean Corpuscular HGB Conc 31.4 GM/DL (32-36); Mean Corpuscular Volume 90.5 FL (87-102); Mean Platelet Volume 11.8 FL (9.6-12.0); Monocytes % 7.9 % (1.7-12.7); Neutrophils % 89.3 % (38.7-73.9); Platelet Count 104 T/CUMM (130-400); Red Blood Count 2.64 MC/CUMM (3.8-5.5); Red Cell Distribution Width 16.9 % (9.3-17.3); White Blood Count 28.7 T/CUMM (4-12)
[2020-07-09 05:02] LABS: Calcium 6.1 MG/DL (8.5-10.1); Osmolality,Calculated 313.5 MOS/KG (273-304); Potassium 5.7 MMOL/L (3.5-5.1)
[2020-07-09 05:05] LABS: Albumin 1.6 G/DL (3.4-5.0); Bilirubin,Direct 0.42 MG/DL (0.0-0.20); Bilirubin,Indirect 0.7 MG/DL (0.0-1.0); Bilirubin,Total 1.1 MG/DL (0.2-1.0); Total Protein 4.8 G/DL (6.4-8.3)
[2020-07-09 05:46] LABS: Anisocytosis 1+; Hypochromasia 2+; Lymphocytes 2 % (20-55); Macrocytosis 1+; Metamyelocytes 1 %; Platelet Estimate Decreased; Segmented Neutrophils 93 % (50-85); Total Cells Counted 100
[2020-07-09] MEDS: FAMOTIDINE 20 MG/2 ML VIAL IV SCH (08:03)
[2020-07-09] MEDS: MORPHINE 4 MG/1 ML VIAL IV PRN ×2 (08:03→21:04)
[2020-07-09] MEDS: ENOXAPARIN 30 MG/0.3 ML SYRINGE SUBCUT SCH (08:04)
[2020-07-09] MEDS: NYSTATIN POWDER 15 GM BOTTLE TOP SCH ×2 (08:05→23:40)
[2020-07-09] MEDS: METOPROLOL TARTRATE 25 MG TABLET PO SCH ×2 (08:05→20:54)
[2020-07-09] MEDS: INSULIN GLARGINE 100 UNIT/ML SUBCUT SCH (08:05)
[2020-07-09] MEDS: ASPIRIN CHEW 81 MG TABLET PO SCH (08:05)
[2020-07-09] MEDS: TICAGRELOR 90 MG TABLET PO SCH ×2 (08:05→20:50)
[2020-07-09] MEDS ORDERED: EPOETIN ALFA-EPBX 2,000 UNIT/ML VIAL IV PRN ×2 (08:40→13:00)
[2020-07-09] MEDS ORDERED: PHENYLEPHRINE DRIP 40 MG/250 ML PREMIX IV PRN (08:44)
[2020-07-09] MEDS: predniSONE 5 MG TABLET PO SCH (08:57)
[2020-07-09] MEDS ORDERED: EPOETIN ALFA-EPBX 10,000 UNIT/ML VIAL IV PRN (09:00)
[2020-07-09] MEDS ORDERED: methylPREDNISolone SOD SUC 40 MG/1 ML VIAL IV SCH (09:00)
[2020-07-09] MEDS ORDERED: MEROPENEM 500 MG in SODIUM CHLORIDE 0.9% 100 ML IV SCH (09:00)
[2020-07-09] MEDS ORDERED: CALCIUM GLUCONATE 2,000 MG in SODIUM CHLORIDE 0.9% 100 ML IV ONE (10:00)
[2020-07-09] MEDS: LINEZOLID INJ 600 MG in PREMIX 1 EACH IV SCH (10:09)
[2020-07-09] MEDS ORDERED: HEPARIN 10,000 UNIT/10 ML VIAL IV PRN (11:30)
[2020-07-09] MEDS ORDERED: LORazepam 2 MG/1 ML VIAL IM PRN (13:13)
[2020-07-09] MEDS ORDERED: ONDANSETRON 4 MG/2 ML VIAL IV PRN (13:13)
[2020-07-09] MEDS: PROMETHAZINE INJ 12.5 MG in SODIUM CHLORIDE 0.9% 50 ML IV PRN (14:15)
[2020-07-09] MEDS: ACETAMINOPHEN 500 MG TABLET PO PRN (17:54)
[2020-07-09] MEDS: NYSTATIN 500,000 UNIT/5 ML UDCUP SWISH/SWAL SCH (20:50)
[2020-07-10] MEDS: ALBUTEROL 2.5 MG/3 ML NEB RESP TX SCH ×4 (00:03→19:37)
[2020-07-10] MEDS: INSULIN LISPRO 100 UNIT/ML SUBCUT SCH ×4 (00:08→17:02)
[2020-07-10] MEDS: ACETAMINOPHEN 500 MG TABLET PO SCH ×2 (00:09→06:50)
[2020-07-10 04:57] LABS: Amorphous Crystals,Urine Occasional /HPF (Few); Bilirubin,Urine Negative (Negative); Blood, Urine Large mg/dL (Negative); Glucose,Urine (UA) 50 mg/dL (Negative); Ketones,Urine Negative (Negative); Mucus,Urine Occasional /LPF (Occasional); Nitrite,Urine Negative (Negative); Protein,Urine 100 MG/DL; RBC,Urine 77 /HPF (0-4); Squamous Epithelial Cell,Urine Occasional /HPF (0-10); Urine Appearance CLOUDY (Clear); Urine Color Amber (Yellow); Urine Specific Gravity 1.015 (1.001-1.035); Urine Urobilinogen < 2.0 EU/DL (0.2-1.0); WBC,Urine 42 /HPF (0-6)
[2020-07-10 07:54] LABS: Hematocrit 28.1 VOL% (42.0-52.0); Immature Granulocytes % 1.1 %; Immature Granulocytes Absolute 0.25 #; Lymphocytes # 0.7 10*3/uL (1.4-4.0); Mean Corpuscular HGB Conc 33.5 GM/DL (32-36); Mean Corpuscular Volume 86.5 FL (87-102); Mean Platelet Volume 11.7 FL (9.6-12.0); Monocytes % 9.3 % (1.7-12.7); Neutrophils % 86.6 % (38.7-73.9); Platelet Count 92 T/CUMM (130-400); Red Cell Distribution Width 17.2 % (9.3-17.3); White Blood Count 22.7 T/CUMM (4-12)
[2020-07-10 07:55] LABS: Hemoglobin 9.4 GM/DL (14.0-18.0); Red Blood Count 3.25 MC/CUMM (3.8-5.5)
[2020-07-10 08:12] LABS: Hypochromasia 1+; Lymphocytes 3 % (20-55); Microcytosis 1+; Platelet Estimate Decreased; Segmented Neutrophils 91 % (50-85); Total Cells Counted 100
[2020-07-10 08:18] LABS: Calcium 6.2 MG/DL (8.5-10.1); Osmolality,Calculated 302.1 MOS/KG (273-304); Potassium 5.5 MMOL/L (3.5-5.1)
[2020-07-10 08:19] LABS: % Iron Saturation 27.7 % (18-50)
[2020-07-10 08:22] LABS: Albumin 1.7 G/DL (3.4-5.0); Bilirubin,Direct 0.62 MG/DL (0.0-0.20); Bilirubin,Indirect 1.5 MG/DL (0.0-1.0); Bilirubin,Total 2.1 MG/DL (0.2-1.0); Total Protein 4.9 G/DL (6.4-8.3)
[2020-07-10] MEDS: TICAGRELOR 90 MG TABLET PO SCH ×2 (09:08→21:48)
[2020-07-10] MEDS: ENOXAPARIN 30 MG/0.3 ML SYRINGE SUBCUT SCH (09:08)
[2020-07-10] MEDS: NYSTATIN 500,000 UNIT/5 ML UDCUP SWISH/SWAL SCH ×4 (09:09→21:48)
[2020-07-10] MEDS: FAMOTIDINE 20 MG/2 ML VIAL IV SCH (09:09)
[2020-07-10] MEDS: ASPIRIN CHEW 81 MG TABLET PO SCH (09:09)
[2020-07-10] MEDS: predniSONE 5 MG TABLET PO SCH (09:09)
[2020-07-10] MEDS: NYSTATIN POWDER 15 GM BOTTLE TOP SCH ×2 (09:10→22:38)
[2020-07-10] MEDS: INSULIN GLARGINE 100 UNIT/ML SUBCUT SCH (09:37)
[2020-07-10] MEDS: METOPROLOL TARTRATE 25 MG TABLET PO SCH ×2 (09:38→21:48)
[2020-07-10] MEDS ORDERED: MEROPENEM 500 MG in SODIUM CHLORIDE 0.9% 100 ML IV SCH (10:00)
[2020-07-10] MEDS ORDERED: MEROPENEM 2,000 MG in SODIUM CHLORIDE 0.9% 100 ML IV SCH (10:00)
[2020-07-10] MEDS: MORPHINE 4 MG/1 ML VIAL IV PRN (12:01)
[2020-07-10] MEDS: PROMETHAZINE INJ 12.5 MG in SODIUM CHLORIDE 0.9% 50 ML IV PRN (13:30)
[2020-07-10] MEDS: MEROPENEM 500 MG in SODIUM CHLORIDE 0.9% 100 ML IV SCH (17:54)
[2020-07-11] MEDS: ALBUTEROL 2.5 MG/3 ML NEB RESP TX SCH ×3 (00:09→19:00)
[2020-07-11] MEDS ORDERED: ACETAMINOPHEN 650 MG SUPP RECTAL PRN (00:54)
[2020-07-11] MEDS: INSULIN LISPRO 100 UNIT/ML SUBCUT SCH ×4 (00:58→18:09)
[2020-07-11] MEDS: SODIUM CHLORIDE 0.9% 250 ML IV SCH ×2 (01:10→02:31)
[2020-07-11 05:53] LABS: Basophils % 0.1 % (0.0-0.8); Hematocrit 27.3 VOL% (42.0-52.0); Immature Granulocytes % 1.1 %; Immature Granulocytes Absolute 0.18 #; Lymphocytes # 0.5 10*3/uL (1.4-4.0); Lymphocytes % 3.1 % (21.2-54.2); Mean Corpuscular Volume 88.3 FL (87-102); Mean Platelet Volume 11.6 FL (9.6-12.0); Monocytes % 10.1 % (1.7-12.7); NRBC # 0.02 10*3/uL; Neutrophils % 85.6 % (38.7-73.9); Red Blood Count 3.09 MC/CUMM (3.8-5.5); Red Cell Distribution Width 18.2 % (9.3-17.3); White Blood Count 16.6 T/CUMM (4-12)
[2020-07-11 06:00] LABS: Platelet Count 79 T/CUMM (130-400)
[2020-07-11 06:12] LABS: Calcium 6.3 MG/DL (8.5-10.1); Osmolality,Calculated 305.4 MOS/KG (273-304); Potassium 4.9 MMOL/L (3.5-5.1)
[2020-07-11 06:15] LABS: Albumin 1.5 G/DL (3.4-5.0); Bilirubin,Direct 0.57 MG/DL (0.0-0.20); Bilirubin,Indirect 1.2 MG/DL (0.0-1.0); Bilirubin,Total 1.8 MG/DL (0.2-1.0); Total Protein 5.3 G/DL (6.4-8.3)
[2020-07-11 06:30] LABS: Band Neutrophils 1 % (0-10); Hypochromasia 1+; Lymphocytes 2 % (20-55); Microcytosis 1+; Platelet Estimate Decreased; Segmented Neutrophils 88 % (50-85); Total Cells Counted 100
[2020-07-11] MEDS: ASPIRIN CHEW 81 MG TABLET PO SCH (09:26)
[2020-07-11] MEDS: predniSONE 5 MG TABLET PO SCH (09:26)
[2020-07-11] MEDS: NYSTATIN 500,000 UNIT/5 ML UDCUP SWISH/SWAL SCH ×4 (09:27→20:46)
[2020-07-11] MEDS: FAMOTIDINE 20 MG/2 ML VIAL IV SCH (09:27)
[2020-07-11] MEDS: NYSTATIN POWDER 15 GM BOTTLE TOP SCH ×2 (09:28→20:46)
[2020-07-11] MEDS: INSULIN GLARGINE 100 UNIT/ML SUBCUT SCH (10:06)
[2020-07-11] MEDS: METOPROLOL TARTRATE 25 MG TABLET PO SCH ×2 (10:07→20:58)
[2020-07-11] MEDS: TICAGRELOR 90 MG TABLET PO SCH ×2 (14:41→20:46)
[2020-07-11] MEDS: MEROPENEM 500 MG in SODIUM CHLORIDE 0.9% 100 ML IV SCH (16:25)
[2020-07-12] MEDS: INSULIN LISPRO 100 UNIT/ML SUBCUT SCH ×4 (01:00→18:34)
[2020-07-12] MEDS: ALBUTEROL 2.5 MG/3 ML NEB RESP TX SCH ×5 (02:21→18:24)
[2020-07-12 06:58] LABS: Basophils % 0.1 % (0.0-0.8); Eosinophils # 0.1 10*3/uL (0.0-0.87); Eosinophils % 0.8 % (0.00-10.9); Hemoglobin 9.2 GM/DL (14.0-18.0); Immature Granulocytes % 0.6 %; Lymphocytes # 0.6 10*3/uL (1.4-4.0); Lymphocytes % 3.5 % (21.2-54.2); Mean Corpuscular HGB Conc 31.7 GM/DL (32-36); Mean Corpuscular Volume 91.8 FL (87-102); Mean Platelet Volume 11.5 FL (9.6-12.0); Monocytes % 11.1 % (1.7-12.7); NRBC # 0.02 10*3/uL; Neutrophils % 83.9 % (38.7-73.9); Red Blood Count 3.16 MC/CUMM (3.8-5.5); Red Cell Distribution Width 18.6 % (9.3-17.3); White Blood Count 15.7 T/CUMM (4-12)
[2020-07-12 07:01] LABS: Platelet Count 84 T/CUMM (130-400)
[2020-07-12 07:17] LABS: Calcium 6.4 MG/DL (8.5-10.1); Osmolality,Calculated 303.4 MOS/KG (273-304); Potassium 4.5 MMOL/L (3.5-5.1)
[2020-07-12 07:19] LABS: Lymphocytes 4 % (20-55); Segmented Neutrophils 89 % (50-85); Total Cells Counted 100
[2020-07-12 07:20] LABS: Platelet Estimate Decreased
[2020-07-12] MEDS: predniSONE 5 MG TABLET PO SCH (09:45)
[2020-07-12] MEDS: FAMOTIDINE 20 MG/2 ML VIAL IV SCH (09:45)
[2020-07-12] MEDS: TICAGRELOR 90 MG TABLET PO SCH (09:45)
[2020-07-12] MEDS: ASPIRIN CHEW 81 MG TABLET PO SCH (09:45)
[2020-07-12] MEDS: METOPROLOL TARTRATE 25 MG TABLET PO SCH (09:45)
[2020-07-12] MEDS: NYSTATIN 500,000 UNIT/5 ML UDCUP SWISH/SWAL SCH ×3 (09:45→16:41)
[2020-07-12] MEDS: NYSTATIN POWDER 15 GM BOTTLE TOP SCH (09:46)
[2020-07-12] MEDS: INSULIN GLARGINE 100 UNIT/ML SUBCUT SCH (10:05)
[2020-07-12 12:25] VITALS: BP 98/62
[2020-07-12] MEDS: MEROPENEM 500 MG in SODIUM CHLORIDE 0.9% 100 ML IV SCH (16:41)
[2020-07-12] MEDS ORDERED: FAT EMULSION 20% 250 ML IV SCH (17:00)
[2020-07-12] MEDS ORDERED: ZINC/COPPER/MANGANESE/SELENIUM 1 ML in AMINO ACIDS/DEXT/LYTES 4.25-5% 2,000 ML IV SCH (17:00)
[2020-07-14] MEDS ORDERED: ZINC/COPPER/MANGANESE/SELENIUM 1 ML, MULTIVITAMIN INJ 10 ML in AMINO ACIDS/DEXT/LYTES 4... IV SCH (17:00)
== END 2020-07-12 21:09 | disposition hospice, home (50) | DRG 1 ==
LOC: N.ICU 06-18 00:55 → N.TELEN 07-09 16:26 → N.ICU 07-12 18:23
PROVIDERS: ADMIT Internal Medicine Cardiovascular Disease; ATTEND Internal Medicine Cardiovascular Disease